=== PATIENT | female | born 1935 | race Caucasian/White ===

== ENCOUNTER 2017-07-24 12:34 | Inpatient (IN) | payer MEDICARE ==
[~2017-07-24] VITALS: Ht 167.6 cm; Wt 64.3 kg
[~2017-07-24 12:34] MED LIST: HEPARIN SODIUM 1000UNIT/ML 10ML VIAL IV ONE
[2017-07-24 13:15] LABS: BASOPHILS % (AUTO) 0.5 % (0.0-5.0); EOSINOPHILS % (AUTO) 1.5 % (0.0-8.0); HEMATOCRIT 26.4 % (36-48); LYMPHOCYTES % (AUTO) 11.8 % (21.0-51.0); MEAN CORPUSCULAR HEMOGLOBIN 30.7 pg (27.0-33.0); MEAN CORPUSCULAR HGB CONC 33.3 g/dL (32.0-36.0); MEAN CORPUSCULAR VOLUME 92.3 fL (79-99); MONOCYTES % (AUTO) 6.6 % (3.0-13.0); NEUTROPHILS % (AUTO) 79.6 % (40.0-77.0); PLATELET COUNT (AUTO) 354 K/uL (130-400); RED BLOOD CELL COUNT(AUTO) 2.87 MIL/uL (4.00-5.50); RED CELL DISTRIBUTION WIDTH 15.8 % (11.0-15.5); WHITE BLOOD COUNT (AUTO) 13.3 K/uL (4.8-10.8)
[2017-07-24 13:23] LABS: CREATININE 1.1 mg/dL (0.5-1.5); POTASSIUM 3.3 mmol/L (3.5-5.1)
[2017-07-24 13:28] LABS: ALBUMIN 3.1 g/dL (3.5-5.0); BILIRUBIN,TOTAL 0.4 mg/dL (0.2-1.0); TOTAL PROTEIN, SERUM 6.6 g/dL (6.0-8.3)
[2017-07-24] MEDS ORDERED: LEVOFLOXACIN 750 MG/D5W 150 ML 150 ML ONE (15:00)
[2017-07-24] MEDS ORDERED: METHYLPREDNISOLONE SOD SUCC 40MG/ML 1ML ONE (17:28)
[2017-07-24] MEDS ORDERED: BENZONATATE 100 MG CAPSULE PO ONE (21:34)
[2017-07-24] MEDS ORDERED: IPRATROPIUM/ALBUTEROL SULFATE 3 ML SOLUTION IH ONE (21:48)
[2017-07-24] MEDS ORDERED: GUAIFENESIN-CODEINE 5 ML SYRUP ONE (21:52)
[2017-07-24 23:50] VITALS: BP 143/46
[2017-07-25] MEDS ORDERED: ONDANSETRON HCL 4 MG/2 ML VIAL IV PRN
[2017-07-25] MEDS ORDERED: HYDRALAZINE HCL 20 MG/ML VIAL IV PRN
[2017-07-25] MEDS: LEVOFLOXACIN 500 MG/D5W 100 ML 100 ML IV SCH
[2017-07-25] MEDS ORDERED: POTASSIUM CHLORIDE 20 MEQ ERTAB PO SCH
[2017-07-25] MEDS: METHYLPREDNISOLONE SOD SUCC 125MG/2ML VIAL IV SCH ×4 (00:11→23:30)
[2017-07-25] MEDS: GUAIFENESIN-DM 200/20 MG 10 ML PO PRN ×3 (02:08→23:30)
[2017-07-25] MEDS: ACETAMINOPHEN 325 MG TAB PO PRN ×3 (02:09→19:55)
[2017-07-25] MEDS: IPRATROPIUM/ALBUTEROL SULFATE 3 ML SOLUTION IH SCH ×6 (02:27→22:26)
[2017-07-25 03:00] VITALS: BP 126/74
[2017-07-25 05:33] LABS: BASOPHILS % (AUTO) 0.1 % (0.0-5.0); HEMATOCRIT 23.6 % (36-48); LYMPHOCYTES % (AUTO) 3.4 % (21.0-51.0); MEAN CORPUSCULAR HEMOGLOBIN 31.7 pg (27.0-33.0); MEAN CORPUSCULAR HGB CONC 34.7 g/dL (32.0-36.0); MEAN CORPUSCULAR VOLUME 91.2 fL (79-99); MONOCYTES % (AUTO) 1.4 % (3.0-13.0); NEUTROPHILS % (AUTO) 95.1 % (40.0-77.0); PLATELET COUNT (AUTO) 306 K/uL (130-400); RED BLOOD CELL COUNT(AUTO) 2.59 MIL/uL (4.00-5.50); RED CELL DISTRIBUTION WIDTH 15.8 % (11.0-15.5); WHITE BLOOD COUNT (AUTO) 9.9 K/uL (4.8-10.8)
[2017-07-25 05:35] LABS: CREATININE 1.3 mg/dL (0.5-1.5); POTASSIUM 3.4 mmol/L (3.5-5.1)
[2017-07-25 07:24] VITALS: BP 120/42
[2017-07-25] MEDS: FAMOTIDINE 20MG TAB 20 MG TAB PO SCH (08:23)
[2017-07-25] MEDS: ENOXAPARIN SODIUM 40 MG/0.4 ML SYRINGE SQ SCH (08:24)
[2017-07-25] MEDS ORDERED: LEVOFLOXACIN 750 MG/D5W 150 ML 150 ML IV SCH (09:00)
[2017-07-25 11:51] VITALS: BP 119/56
[2017-07-25] MEDS: SODIUM CHLORIDE 0.9% 1000ML 1,000 ML IV SCH (13:16)
[2017-07-25] MEDS ORDERED: ASPI-555 PO (13:31)
[2017-07-25] MEDS ORDERED: MAGN400T6 PO (13:31)
[2017-07-25] MEDS ORDERED: FOLI1TAB15 PO (13:31)
[2017-07-25] MEDS ORDERED: IRON1CAP35 PO (13:31)
[2017-07-25] MEDS ORDERED: METO25TA6 PO (13:31)
[2017-07-25] MEDS ORDERED: LOVA20TA3 PO (13:31)
[2017-07-25] MEDS ORDERED: LOSA1TAB42 PO (13:31)
[2017-07-25] MEDS ORDERED: CALC-724 PO (13:38)
[2017-07-25] MEDS ORDERED: FISH1CAP63 PO (13:38)
[2017-07-25] MEDS ORDERED: CYAN1000I IM (13:38)
[2017-07-25 15:56] VITALS: BP 95/58
[2017-07-25 19:00] VITALS: BP 135/65
[2017-07-25] MEDS: BENZONATATE 100 MG CAPSULE PO PRN (19:51)
[2017-07-25] MEDS ORDERED: POTASSIUM CHLORIDE 20MEQ/100ML 100 ML IV PRN (22:45)
[2017-07-25] MEDS ORDERED: POTASSIUM CHLORIDE 10% ELIXIR 20 MEQ/15 ML UDCUP PO PRN (22:45)
[2017-07-25] MEDS ORDERED: LIDOCAINE HCL-MPF 1% 2ML VIAL IVP PRN (22:45)
[2017-07-25 23:00] VITALS: BP 135/64
[2017-07-25] MEDS: POTASSIUM CHLORIDE 20 MEQ ERTAB PO PRN (23:35)
[2017-07-26] MEDS: IPRATROPIUM/ALBUTEROL SULFATE 3 ML SOLUTION IH SCH ×6 (02:35→21:59)
[2017-07-26 03:00] VITALS: BP 134/63
[2017-07-26] MEDS: POTASSIUM CHLORIDE 20 MEQ ERTAB PO PRN (04:37)
[2017-07-26] MEDS: BENZONATATE 100 MG CAPSULE PO PRN (04:37)
[2017-07-26] MEDS: GUAIFENESIN-DM 200/20 MG 10 ML PO PRN ×3 (04:37→14:50)
[2017-07-26] MEDS: SODIUM CHLORIDE 0.9% 1000ML 1,000 ML IV SCH (05:20)
[2017-07-26] MEDS: ACETYLCYSTEINE 10% 100MG/ML 4ML VIAL IH SCH ×5 (06:28→21:59)
[2017-07-26] MEDS ORDERED: PHARMACY COMMUNICATION MISC SCH (06:30)
[2017-07-26 08:00] VITALS: BP 105/53
[2017-07-26] MEDS: FAMOTIDINE 20MG TAB 20 MG TAB PO SCH (08:22)
[2017-07-26] MEDS: METHYLPREDNISOLONE SOD SUCC 125MG/2ML VIAL IV SCH ×2 (08:22→18:52)
[2017-07-26] MEDS: ENOXAPARIN SODIUM 40 MG/0.4 ML SYRINGE SQ SCH (08:23)
[2017-07-26 12:00] VITALS: BP 143/81
[2017-07-26 12:16] LABS: HEMATOCRIT 23.5 % (36-48); MEAN CORPUSCULAR HEMOGLOBIN 29.9 pg (27.0-33.0); MEAN CORPUSCULAR HGB CONC 32.7 g/dL (32.0-36.0); MEAN CORPUSCULAR VOLUME 91.5 fL (79-99); PLATELET COUNT (AUTO) 329 K/uL (130-400); RED BLOOD CELL COUNT(AUTO) 2.56 MIL/uL (4.00-5.50); RED CELL DISTRIBUTION WIDTH 16.1 % (11.0-15.5); WHITE BLOOD COUNT (AUTO) 16.7 K/uL (4.8-10.8)
[2017-07-26 12:17] LABS: CREATININE 1.2 mg/dL (0.5-1.5); POTASSIUM 3.9 mmol/L (3.5-5.1)
[2017-07-26 16:00] VITALS: BP 128/68
[2017-07-26 20:00] VITALS: BP 140/70
[2017-07-26] MEDS: METOPROLOL TARTRATE 25 MG TAB PO SCH (21:08)
[2017-07-26] MEDS: GUAIFENESIN-CODEINE 5 ML SYRUP PO SCH (21:08)
[2017-07-26] MEDS: FISH OIL 1000 MG/CAP PO SCH (21:08)
[2017-07-26] MEDS: ATORVASTATIN CALCIUM 10 MG TABLET PO SCH (21:08)
[2017-07-27] VITALS: BP 114/54
[2017-07-27] MEDS: METHYLPREDNISOLONE SOD SUCC 125MG/2ML VIAL IV SCH ×3 (01:01→16:43)
[2017-07-27] MEDS: GUAIFENESIN-DM 200/20 MG 10 ML PO PRN ×2 (01:01→14:47)
[2017-07-27] MEDS: ACETAMINOPHEN 325 MG TAB PO PRN ×2 (01:01→14:50)
[2017-07-27] MEDS: LEVOFLOXACIN 500 MG/D5W 100 ML 100 ML IV SCH (01:02)
[2017-07-27] MEDS: LORAZEPAM 2 MG/ML 1 ML VIAL IVP PRN ×2 (01:11→22:09)
[2017-07-27] MEDS: IPRATROPIUM/ALBUTEROL SULFATE 3 ML SOLUTION IH SCH ×6 (02:26→21:56)
[2017-07-27] MEDS: ACETYLCYSTEINE 10% 100MG/ML 4ML VIAL IH SCH ×2 (02:26→06:00)
[2017-07-27] MEDS: BENZONATATE 100 MG CAPSULE PO PRN ×3 (02:55→22:08)
[2017-07-27 04:00] VITALS: BP 126/68
[2017-07-27 07:49] LABS: HEMATOCRIT 24.1 % (36-48); MEAN CORPUSCULAR HEMOGLOBIN 30.5 pg (27.0-33.0); MEAN CORPUSCULAR HGB CONC 33.8 g/dL (32.0-36.0); MEAN CORPUSCULAR VOLUME 90.4 fL (79-99); PLATELET COUNT (AUTO) 330 K/uL (130-400); RED BLOOD CELL COUNT(AUTO) 2.67 MIL/uL (4.00-5.50); RED CELL DISTRIBUTION WIDTH 16.3 % (11.0-15.5); WHITE BLOOD COUNT (AUTO) 22.7 K/uL (4.8-10.8)
[2017-07-27 08:00] VITALS: BP 112/70
[2017-07-27 08:08] LABS: CREATININE 1.1 mg/dL (0.5-1.5); POTASSIUM 4.4 mmol/L (3.5-5.1)
[2017-07-27] MEDS ORDERED: HYDROCHLOROTHIAZIDE 25 MG TABLET PO SCH (09:00)
[2017-07-27] MEDS: MAGNESIUM OXIDE 400 MG TABLET PO SCH (10:12)
[2017-07-27] MEDS: CALCIUM 600 + VITAMIN D 400 TABLET PO SCH (10:12)
[2017-07-27] MEDS: ASPIRIN 81 MG EC TAB PO SCH (10:12)
[2017-07-27] MEDS: FE FUMARATE/FA/MV, MIN COMB#15 1 TAB PO SCH (10:12)
[2017-07-27] MEDS: METOPROLOL TARTRATE 25 MG TAB PO SCH ×2 (10:12→22:08)
[2017-07-27] MEDS: ENOXAPARIN SODIUM 40 MG/0.4 ML SYRINGE SQ SCH (10:12)
[2017-07-27] MEDS: LOSARTAN 100 MG TABLET PO SCH (10:12)
[2017-07-27] MEDS: FOLIC ACID 1 MG TABLET PO SCH (10:12)
[2017-07-27] MEDS: FAMOTIDINE 20MG TAB 20 MG TAB PO SCH (10:14)
[2017-07-27] MEDS: CYANOCOBALAMIN (VITAMIN B-12) 1000 MCG/ML 1ML VIAL IM SCH (10:30)
[2017-07-27 10:34] LABS: THYROID STIMULATING HORMONE 1.43 uIU/mL (0.36-3.74)
[2017-07-27 11:30] VITALS: BP 119/56
[2017-07-27 16:00] VITALS: BP 132/76
[2017-07-27 20:00] VITALS: BP 148/82
[2017-07-27] MEDS: ATORVASTATIN CALCIUM 10 MG TABLET PO SCH (22:08)
[2017-07-27] MEDS: GUAIFENESIN-CODEINE 5 ML SYRUP PO SCH (22:08)
[2017-07-27] MEDS: FISH OIL 1000 MG/CAP PO SCH (22:08)
[2017-07-28] VITALS (7 sets, daily range): BP systolic 116–147; BP diastolic 69–104
[2017-07-28] MEDS: METHYLPREDNISOLONE SOD SUCC 125MG/2ML VIAL IV SCH ×4 (00:34→23:09)
[2017-07-28] MEDS: IPRATROPIUM/ALBUTEROL SULFATE 3 ML SOLUTION IH SCH ×6 (01:14→21:51)
[2017-07-28] MEDS: GUAIFENESIN-DM 200/20 MG 10 ML PO PRN ×3 (03:36→23:00)
[2017-07-28] MEDS: BENZONATATE 100 MG CAPSULE PO PRN ×2 (03:36→17:45)
[2017-07-28 07:41] LABS: HEMATOCRIT 25.8 % (36-48); MEAN CORPUSCULAR HEMOGLOBIN 29.4 pg (27.0-33.0); PLATELET COUNT (AUTO) 341 K/uL (130-400); RED CELL DISTRIBUTION WIDTH 16.6 % (11.0-15.5); WHITE BLOOD COUNT (AUTO) 18.3 K/uL (4.8-10.8)
[2017-07-28 07:47] LABS: CREATININE 0.8 mg/dL (0.5-1.5); POTASSIUM 4.4 mmol/L (3.5-5.1)
[2017-07-28] MEDS: METOPROLOL TARTRATE 25 MG TAB PO SCH ×2 (09:18→20:45)
[2017-07-28] MEDS: FAMOTIDINE 20MG TAB 20 MG TAB PO SCH (09:18)
[2017-07-28] MEDS: MAGNESIUM OXIDE 400 MG TABLET PO SCH (09:18)
[2017-07-28] MEDS: LOSARTAN 100 MG TABLET PO SCH (09:18)
[2017-07-28] MEDS: ASPIRIN 81 MG EC TAB PO SCH (09:18)
[2017-07-28] MEDS: FE FUMARATE/FA/MV, MIN COMB#15 1 TAB PO SCH (09:18)
[2017-07-28] MEDS: CYANOCOBALAMIN (VITAMIN B-12) 1000 MCG/ML 1ML VIAL IM SCH (09:18)
[2017-07-28] MEDS: FOLIC ACID 1 MG TABLET PO SCH (09:18)
[2017-07-28] MEDS: CALCIUM 600 + VITAMIN D 400 TABLET PO SCH (09:18)
[2017-07-28] MEDS: ENOXAPARIN SODIUM 40 MG/0.4 ML SYRINGE SQ SCH (09:19)
[2017-07-28] MEDS: SODIUM CHLORIDE 1,000 MG TAB PO SCH ×3 (10:48→23:02)
[2017-07-28] MEDS: SODIUM CHLORIDE 0.9% 1000ML 1,000 ML IV SCH (10:49)
[2017-07-28] MEDS: ACETAMINOPHEN 325 MG TAB PO PRN (10:49)
[2017-07-28] MEDS: ATORVASTATIN CALCIUM 10 MG TABLET PO SCH (20:45)
[2017-07-28] MEDS: FISH OIL 1000 MG/CAP PO SCH (20:45)
[2017-07-28] MEDS: GUAIFENESIN-CODEINE 5 ML SYRUP PO SCH (20:46)
[2017-07-28] MEDS: LORAZEPAM 2 MG/ML 1 ML VIAL IVP PRN (23:01)
[2017-07-28] MEDS: LEVOFLOXACIN 500 MG/D5W 100 ML 100 ML IV SCH (23:02)
[2017-07-29] MEDS: IPRATROPIUM/ALBUTEROL SULFATE 3 ML SOLUTION IH SCH ×6 (01:45→21:59)
[2017-07-29 03:00] VITALS: BP 136/70
[2017-07-29] MEDS: SODIUM CHLORIDE 1,000 MG TAB PO SCH ×3 (05:36→18:35)
[2017-07-29] MEDS: SODIUM CHLORIDE 0.9% 1000ML 1,000 ML IV SCH (06:39)
[2017-07-29 08:00] VITALS: BP 133/78
[2017-07-29] MEDS: METHYLPREDNISOLONE SOD SUCC 125MG/2ML VIAL IV SCH ×2 (08:46→16:35)
[2017-07-29] MEDS: MAGNESIUM OXIDE 400 MG TABLET PO SCH (08:47)
[2017-07-29] MEDS: FE FUMARATE/FA/MV, MIN COMB#15 1 TAB PO SCH (08:47)
[2017-07-29] MEDS: CYANOCOBALAMIN (VITAMIN B-12) 1000 MCG/ML 1ML VIAL IM SCH (08:47)
[2017-07-29] MEDS: CALCIUM 600 + VITAMIN D 400 TABLET PO SCH (08:47)
[2017-07-29] MEDS: ASPIRIN 81 MG EC TAB PO SCH (08:47)
[2017-07-29] MEDS: FAMOTIDINE 20MG TAB 20 MG TAB PO SCH (08:47)
[2017-07-29] MEDS: FOLIC ACID 1 MG TABLET PO SCH (08:47)
[2017-07-29] MEDS: LOSARTAN 100 MG TABLET PO SCH (08:47)
[2017-07-29] MEDS: METOPROLOL TARTRATE 25 MG TAB PO SCH ×2 (08:47→21:23)
[2017-07-29] MEDS: ENOXAPARIN SODIUM 40 MG/0.4 ML SYRINGE SQ SCH (08:48)
[2017-07-29] MEDS: LORAZEPAM 2 MG/ML 1 ML VIAL IVP PRN ×2 (10:46→21:24)
[2017-07-29 11:43] VITALS: BP 148/79
[2017-07-29] MEDS ORDERED: ZOSYN 3.375GM+NS 50ML 50 ML IV SCH (15:00)
[2017-07-29 15:56] VITALS: BP 136/85
[2017-07-29] MEDS: MEROPENEM 1 GM VIAL IVP SCH ×2 (16:35→22:40)
[2017-07-29] MEDS: BENZONATATE 100 MG CAPSULE PO PRN (18:42)
[2017-07-29 19:00] VITALS: BP 153/91
[2017-07-29] MEDS: ATORVASTATIN CALCIUM 10 MG TABLET PO SCH (21:23)
[2017-07-29] MEDS: FISH OIL 1000 MG/CAP PO SCH (21:23)
[2017-07-29] MEDS: GUAIFENESIN-CODEINE 5 ML SYRUP PO SCH (21:24)
[2017-07-29 23:00] VITALS: BP 135/64
[2017-07-30] MEDS: METHYLPREDNISOLONE SOD SUCC 125MG/2ML VIAL IV SCH ×2 (00:07→08:46)
[2017-07-30] MEDS: SODIUM CHLORIDE 1,000 MG TAB PO SCH ×4 (00:07→17:05)
[2017-07-30] MEDS: IPRATROPIUM/ALBUTEROL SULFATE 3 ML SOLUTION IH SCH ×6 (01:41→22:18)
[2017-07-30 03:00] VITALS: BP 136/73
[2017-07-30 05:40] LABS: HEMATOCRIT 25.1 % (36-48); MEAN CORPUSCULAR HEMOGLOBIN 28.8 pg (27.0-33.0); MEAN CORPUSCULAR HGB CONC 32.4 g/dL (32.0-36.0); MEAN CORPUSCULAR VOLUME 89.1 fL (79-99); NUCLEATED RED BLOOD CELLS 0.2 % (0.0-0.19); PLATELET COUNT (AUTO) 392 K/uL (130-400); RED BLOOD CELL COUNT(AUTO) 2.82 MIL/uL (4.00-5.50); RED CELL DISTRIBUTION WIDTH 16.6 % (11.0-15.5); WHITE BLOOD COUNT (AUTO) 22.3 K/uL (4.8-10.8)
[2017-07-30 05:59] LABS: ALBUMIN 2.8 g/dL (3.5-5.0); BILIRUBIN,TOTAL 0.6 mg/dL (0.2-1.0); CREATININE 0.9 mg/dL (0.5-1.5); POTASSIUM 4.4 mmol/L (3.5-5.1); TOTAL PROTEIN, SERUM 5.6 g/dL (6.0-8.3)
[2017-07-30] MEDS: MEROPENEM 1 GM VIAL IVP SCH ×3 (06:11→23:58)
[2017-07-30 06:21] LABS: LYMPHOCYTES % (MANUAL) 2 % (22-44); MAN.DIFF COMMENT-IMPRESSION MANUAL DIFFERENTIAL; METAMYELOCYTES % 1 % (0-0); MONOCYTES % (MANUAL) 4 % (2-9); PLATELET MORPHOLOGY COMMENT ADEQUATE; SEGMENTED NEUTROPHILS % 93 % (40-70)
[2017-07-30 06:23] LABS: B-TYPE NATRIURETIC PEPTIDE 1940 pg/mL (0-100)
[2017-07-30 06:53] LABS: ERYTHROCYTE SEDIMENTATION RATE 18 MM/HR (0-15)
[2017-07-30 07:30] VITALS: BP 135/77
[2017-07-30 08:10] LABS: ABG BASE EXCESS 1.2 mmol/L (-2.0-3.0); ABG HCO3 24.6 mmol/L (21.0-28.0); ABG OXYGEN SATURATION 95.5 % (95.0-99.0); ABG PCO2 35 mmHg (32-45)
[2017-07-30] MEDS: CYANOCOBALAMIN (VITAMIN B-12) 1000 MCG/ML 1ML VIAL IM SCH (08:46)
[2017-07-30] MEDS: FE FUMARATE/FA/MV, MIN COMB#15 1 TAB PO SCH (08:47)
[2017-07-30] MEDS: LOSARTAN 100 MG TABLET PO SCH (08:47)
[2017-07-30] MEDS: FOLIC ACID 1 MG TABLET PO SCH (08:47)
[2017-07-30] MEDS: MAGNESIUM OXIDE 400 MG TABLET PO SCH (08:47)
[2017-07-30] MEDS: ASPIRIN 81 MG EC TAB PO SCH (08:47)
[2017-07-30] MEDS: CALCIUM 600 + VITAMIN D 400 TABLET PO SCH (08:47)
[2017-07-30] MEDS: METOPROLOL TARTRATE 25 MG TAB PO SCH ×2 (08:47→18:44)
[2017-07-30] MEDS: ENOXAPARIN SODIUM 40 MG/0.4 ML SYRINGE SQ SCH (08:48)
[2017-07-30] MEDS: FAMOTIDINE 20MG TAB 20 MG TAB PO SCH (08:48)
[2017-07-30 12:00] VITALS: BP 132/74
[2017-07-30] MEDS: FUROSEMIDE 10 MG/ML 2ML VIAL IV SCH (13:47)
[2017-07-30] MEDS: GUAIFENESIN-DM 200/20 MG 10 ML PO PRN (13:48)
[2017-07-30 16:00] VITALS: BP 141/77
[2017-07-30] MEDS: BENZONATATE 100 MG CAPSULE PO PRN (16:04)
[2017-07-30] MEDS ORDERED: DILTIAZEM HCL 5 MG/ML 5 ML VIAL IVP SCH (18:13)
[2017-07-30 20:00] VITALS: BP 128/72
[2017-07-30] MEDS: ATORVASTATIN CALCIUM 10 MG TABLET PO SCH (21:04)
[2017-07-30] MEDS: FISH OIL 1000 MG/CAP PO SCH (21:04)
[2017-07-30] MEDS: GUAIFENESIN-CODEINE 5 ML SYRUP PO SCH (21:05)
[2017-07-30] MEDS: METHYLPREDNISOLONE SOD SUCC 40MG/ML 1ML IVP SCH (21:05)
[2017-07-31] VITALS (7 sets, daily range): BP systolic 121–147; BP diastolic 57–80
[2017-07-31] MEDS: FUROSEMIDE 10 MG/ML 2ML VIAL IV SCH (00:11)
[2017-07-31] MEDS: SODIUM CHLORIDE 1,000 MG TAB PO SCH ×4 (00:11→17:42)
[2017-07-31] MEDS: LEVOFLOXACIN 500 MG/D5W 100 ML 100 ML IV SCH (00:11)
[2017-07-31] MEDS: IPRATROPIUM/ALBUTEROL SULFATE 3 ML SOLUTION IH SCH ×6 (01:54→22:13)
[2017-07-31] MEDS: ACETAMINOPHEN 325 MG TAB PO PRN (04:12)
[2017-07-31] MEDS: MEROPENEM 1 GM VIAL IVP SCH ×2 (06:00→15:06)
[2017-07-31 06:32] LABS: HEMATOCRIT 24.2 % (36-48); MEAN CORPUSCULAR HGB CONC 33.5 g/dL (32.0-36.0); MEAN CORPUSCULAR VOLUME 89.7 fL (79-99); NUCLEATED RED BLOOD CELLS 0.3 % (0.0-0.19); PLATELET COUNT (AUTO) 376 K/uL (130-400); RED BLOOD CELL COUNT(AUTO) 2.69 MIL/uL (4.00-5.50); WHITE BLOOD COUNT (AUTO) 23.8 K/uL (4.8-10.8)
[2017-07-31 06:40] LABS: CREATININE 0.9 mg/dL (0.5-1.5); POTASSIUM 4.5 mmol/L (3.5-5.1)
[2017-07-31 07:10] LABS: LYMPHOCYTES % (MANUAL) 4 % (22-44); MAN.DIFF COMMENT-IMPRESSION MANUAL DIFFERENTIAL; MONOCYTES % (MANUAL) 8 % (2-9); PLATELET MORPHOLOGY COMMENT ADEQUATE; SEGMENTED NEUTROPHILS % 88 % (40-70)
[2017-07-31 07:38] LABS: B-TYPE NATRIURETIC PEPTIDE 2070 pg/mL (0-100)
[2017-07-31] MEDS: METHYLPREDNISOLONE SOD SUCC 40MG/ML 1ML IVP SCH ×2 (08:46→20:40)
[2017-07-31] MEDS: MAGNESIUM OXIDE 400 MG TABLET PO SCH (08:46)
[2017-07-31] MEDS: FAMOTIDINE 20MG TAB 20 MG TAB PO SCH (08:46)
[2017-07-31] MEDS: FE FUMARATE/FA/MV, MIN COMB#15 1 TAB PO SCH (08:46)
[2017-07-31] MEDS: ASPIRIN 81 MG EC TAB PO SCH (08:46)
[2017-07-31] MEDS: CYANOCOBALAMIN (VITAMIN B-12) 1000 MCG/ML 1ML VIAL IM SCH (08:46)
[2017-07-31] MEDS: METOPROLOL TARTRATE 25 MG TAB PO SCH (08:46)
[2017-07-31] MEDS: LOSARTAN 100 MG TABLET PO SCH (08:47)
[2017-07-31] MEDS: CALCIUM 600 + VITAMIN D 400 TABLET PO SCH (08:47)
[2017-07-31] MEDS: FOLIC ACID 1 MG TABLET PO SCH (08:47)
[2017-07-31] MEDS: ENOXAPARIN SODIUM 40 MG/0.4 ML SYRINGE SQ SCH (08:48)
[2017-07-31 13:00] LABS: CREATINE KINASE MB 6.1 ng/mL (0.5-3.6)
[2017-07-31 13:02] LABS: TROPONIN I 1.17 ng/mL (0.00-0.06)
[2017-07-31] MEDS: FUROSEMIDE 20 MG TABLET PO SCH (17:42)
[2017-07-31] MEDS ORDERED: DILTIAZEM HCL 5 MG/ML 5 ML VIAL IVP SCH (19:45)
[2017-07-31] MEDS: POTASSIUM CHLORIDE 20 MEQ ERTAB PO SCH (20:40)
[2017-07-31] MEDS: FISH OIL 1000 MG/CAP PO SCH (20:40)
[2017-07-31] MEDS: GUAIFENESIN-CODEINE 5 ML SYRUP PO SCH (20:40)
[2017-07-31] MEDS: ATORVASTATIN CALCIUM 10 MG TABLET PO SCH (20:41)
[2017-07-31] MEDS: LORAZEPAM 2 MG/ML 1 ML VIAL IVP PRN (21:18)
[2017-08-01] VITALS (7 sets, daily range): BP systolic 107–151; BP diastolic 62–96
[2017-08-01] MEDS: SODIUM CHLORIDE 1,000 MG TAB PO SCH ×5 (00:51→23:29)
[2017-08-01] MEDS: GUAIFENESIN-DM 200/20 MG 10 ML PO PRN ×3 (00:51→15:31)
[2017-08-01] MEDS: METOPROLOL TARTRATE 25 MG TAB PO SCH ×3 (00:51→23:29)
[2017-08-01] MEDS: MEROPENEM 1 GM VIAL IVP SCH ×4 (00:52→23:27)
[2017-08-01] MEDS: IPRATROPIUM/ALBUTEROL SULFATE 3 ML SOLUTION IH SCH ×6 (02:20→22:50)
[2017-08-01] MEDS: BENZONATATE 100 MG CAPSULE PO PRN ×2 (04:13→23:28)
[2017-08-01 05:04] LABS: BASOPHILS % (AUTO) 0.2 % (0.0-5.0); HEMATOCRIT 24.9 % (36-48); LYMPHOCYTES % (AUTO) 2.6 % (21.0-51.0); MEAN CORPUSCULAR HEMOGLOBIN 29.2 pg (27.0-33.0); MEAN CORPUSCULAR HGB CONC 32.7 g/dL (32.0-36.0); MEAN CORPUSCULAR VOLUME 89.1 fL (79-99); MONOCYTES % (AUTO) 6.4 % (3.0-13.0); NEUTROPHILS % (AUTO) 90.8 % (40.0-77.0); NUCLEATED RED BLOOD CELLS 0.4 % (0.0-0.19); PLATELET COUNT (AUTO) 452 K/uL (130-400); RED CELL DISTRIBUTION WIDTH 16.9 % (11.0-15.5); WHITE BLOOD COUNT (AUTO) 27.1 K/uL (4.8-10.8)
[2017-08-01 05:21] LABS: POTASSIUM 4.7 mmol/L (3.5-5.1)
[2017-08-01 08:30] LABS: CREATINE KINASE MB 5.1 ng/mL (0.5-3.6)
[2017-08-01] MEDS: MAGNESIUM OXIDE 400 MG TABLET PO SCH (09:46)
[2017-08-01] MEDS: ASPIRIN 81 MG EC TAB PO SCH (09:47)
[2017-08-01] MEDS: POTASSIUM CHLORIDE 20 MEQ ERTAB PO SCH ×2 (09:47→23:28)
[2017-08-01] MEDS: CALCIUM 600 + VITAMIN D 400 TABLET PO SCH (09:47)
[2017-08-01] MEDS: FOLIC ACID 1 MG TABLET PO SCH (09:47)
[2017-08-01] MEDS: METHYLPREDNISOLONE SOD SUCC 40MG/ML 1ML IVP SCH ×2 (09:47→23:27)
[2017-08-01] MEDS: LOSARTAN 100 MG TABLET PO SCH (09:47)
[2017-08-01] MEDS: FAMOTIDINE 20MG TAB 20 MG TAB PO SCH (09:48)
[2017-08-01] MEDS: FUROSEMIDE 20 MG TABLET PO SCH ×2 (09:48→16:50)
[2017-08-01] MEDS: FE FUMARATE/FA/MV, MIN COMB#15 1 TAB PO SCH (09:48)
[2017-08-01] MEDS: ENOXAPARIN SODIUM 40 MG/0.4 ML SYRINGE SQ SCH (09:49)
[2017-08-01] MEDS: CYANOCOBALAMIN (VITAMIN B-12) 1000 MCG/ML 1ML VIAL IM SCH (09:49)
[2017-08-01 13:26] LABS: TROPONIN I 0.83 ng/mL (0.00-0.06)
[2017-08-01] MEDS ORDERED: LACTULOSE 20 GM/30 ML UDCUP PO PRN (13:30)
[2017-08-01 13:37] LABS: CREATINE KINASE MB 4.1 ng/mL (0.5-3.6)
[2017-08-01] MEDS: DOCUSATE SODIUM 100 MG CAP PO SCH (15:31)
[2017-08-01] MEDS: LEVOFLOXACIN 500 MG/D5W 100 ML 100 ML IV SCH (23:27)
[2017-08-01] MEDS: GUAIFENESIN-CODEINE 5 ML SYRUP PO SCH (23:27)
[2017-08-01] MEDS: ATORVASTATIN CALCIUM 10 MG TABLET PO SCH (23:29)
[2017-08-01] MEDS: FISH OIL 1000 MG/CAP PO SCH (23:29)
[2017-08-01] MEDS: LORAZEPAM 2 MG/ML 1 ML VIAL IVP PRN (23:31)
[2017-08-02] MEDS: IPRATROPIUM/ALBUTEROL SULFATE 3 ML SOLUTION IH SCH ×6 (02:00→22:30)
[2017-08-02 04:27] VITALS: BP 150/71
[2017-08-02 05:45] LABS: BASOPHILS % (AUTO) 0.2 % (0.0-5.0); HEMATOCRIT 23.2 % (36-48); LYMPHOCYTES % (AUTO) 2.5 % (21.0-51.0); MEAN CORPUSCULAR HEMOGLOBIN 30.5 pg (27.0-33.0); MEAN CORPUSCULAR HGB CONC 34.1 g/dL (32.0-36.0); MEAN CORPUSCULAR VOLUME 89.6 fL (79-99); MONOCYTES % (AUTO) 6.4 % (3.0-13.0); NEUTROPHILS % (AUTO) 90.9 % (40.0-77.0); NUCLEATED RED BLOOD CELLS 0.3 % (0.0-0.19); PLATELET COUNT (AUTO) 386 K/uL (130-400); RED BLOOD CELL COUNT(AUTO) 2.59 MIL/uL (4.00-5.50); RED CELL DISTRIBUTION WIDTH 16.2 % (11.0-15.5); WHITE BLOOD COUNT (AUTO) 19.6 K/uL (4.8-10.8)
[2017-08-02 06:17] LABS: CREATININE 0.8 mg/dL (0.5-1.5); POTASSIUM 5.3 mmol/L (3.5-5.1)
[2017-08-02] MEDS: SODIUM CHLORIDE 1,000 MG TAB PO SCH ×3 (07:05→18:41)
[2017-08-02] MEDS: MEROPENEM 1 GM VIAL IVP SCH ×3 (07:05→22:07)
[2017-08-02 08:00] VITALS: BP 131/59
[2017-08-02] MEDS: METHYLPREDNISOLONE SOD SUCC 40MG/ML 1ML IVP SCH (10:07)
[2017-08-02] MEDS: CYANOCOBALAMIN (VITAMIN B-12) 1000 MCG/ML 1ML VIAL IM SCH (10:07)
[2017-08-02] MEDS: FAMOTIDINE 20MG TAB 20 MG TAB PO SCH (10:07)
[2017-08-02] MEDS: FOLIC ACID 1 MG TABLET PO SCH (10:07)
[2017-08-02] MEDS: MAGNESIUM OXIDE 400 MG TABLET PO SCH (10:08)
[2017-08-02] MEDS: FUROSEMIDE 20 MG TABLET PO SCH ×2 (10:08→18:42)
[2017-08-02] MEDS: DOCUSATE SODIUM 100 MG CAP PO SCH (10:09)
[2017-08-02] MEDS: METOPROLOL TARTRATE 25 MG TAB PO SCH ×3 (10:09→22:33)
[2017-08-02] MEDS: POTASSIUM CHLORIDE 20 MEQ ERTAB PO SCH ×2 (10:09→21:00)
[2017-08-02] MEDS: CALCIUM 600 + VITAMIN D 400 TABLET PO SCH (10:09)
[2017-08-02] MEDS: FE FUMARATE/FA/MV, MIN COMB#15 1 TAB PO SCH (10:09)
[2017-08-02] MEDS: LOSARTAN 100 MG TABLET PO SCH (10:09)
[2017-08-02] MEDS: ASPIRIN 81 MG EC TAB PO SCH (10:09)
[2017-08-02] MEDS: ENOXAPARIN SODIUM 40 MG/0.4 ML SYRINGE SQ SCH (10:10)
[2017-08-02 11:00] VITALS: BP 137/64
[2017-08-02] MEDS: GUAIFENESIN-DM 200/20 MG 10 ML PO PRN (13:08)
[2017-08-02 16:00] VITALS: BP 123/56
[2017-08-02 20:00] VITALS: BP 119/70
[2017-08-02] MEDS: LORAZEPAM 2 MG/ML 1 ML VIAL IVP PRN (22:04)
[2017-08-02] MEDS: BENZONATATE 100 MG CAPSULE PO PRN (22:06)
[2017-08-02] MEDS: GUAIFENESIN-CODEINE 5 ML SYRUP PO SCH (22:06)
[2017-08-02] MEDS: FISH OIL 1000 MG/CAP PO SCH (22:06)
[2017-08-02] MEDS: ATORVASTATIN CALCIUM 10 MG TABLET PO SCH (22:06)
[2017-08-03] VITALS (7 sets, daily range): BP systolic 90–141; BP diastolic 47–72
[2017-08-03] MEDS: SODIUM CHLORIDE 1,000 MG TAB PO SCH ×4 (01:00→23:49)
[2017-08-03] MEDS: GUAIFENESIN-DM 200/20 MG 10 ML PO PRN (01:00)
[2017-08-03] MEDS: IPRATROPIUM/ALBUTEROL SULFATE 3 ML SOLUTION IH SCH ×6 (02:05→21:31)
[2017-08-03 05:15] LABS: HEMATOCRIT 27.4 % (36-48); MEAN CORPUSCULAR HEMOGLOBIN 28.9 pg (27.0-33.0); MEAN CORPUSCULAR HGB CONC 31.9 g/dL (32.0-36.0); MEAN CORPUSCULAR VOLUME 90.4 fL (79-99); NUCLEATED RED BLOOD CELLS 0.6 % (0.0-0.19); PLATELET COUNT (AUTO) 516 K/uL (130-400); RED BLOOD CELL COUNT(AUTO) 3.03 MIL/uL (4.00-5.50); RED CELL DISTRIBUTION WIDTH 16.8 % (11.0-15.5); WHITE BLOOD COUNT (AUTO) 24.8 K/uL (4.8-10.8)
[2017-08-03 05:28] LABS: BAND NEUTROPHILS % (MANUAL) 1 % (0-2); LYMPHOCYTES % (MANUAL) 8 % (22-44); MAN.DIFF COMMENT-IMPRESSION MANUAL DIFFERENTIAL; MONOCYTES % (MANUAL) 12 % (2-9); SEGMENTED NEUTROPHILS % 79 % (40-70)
[2017-08-03 05:29] LABS: PLATELET MORPHOLOGY COMMENT INCREASED; POTASSIUM 5.1 mmol/L (3.5-5.1)
[2017-08-03] MEDS: MEROPENEM 1 GM VIAL IVP SCH ×3 (07:00→23:14)
[2017-08-03] MEDS: POTASSIUM CHLORIDE 20 MEQ ERTAB PO SCH (08:35)
[2017-08-03] MEDS: FOLIC ACID 1 MG TABLET PO SCH (09:00)
[2017-08-03] MEDS: MAGNESIUM OXIDE 400 MG TABLET PO SCH (09:00)
[2017-08-03] MEDS: PREDNISONE 10 MG TABLET PO SCH (09:00)
[2017-08-03] MEDS: FE FUMARATE/FA/MV, MIN COMB#15 1 TAB PO SCH (09:00)
[2017-08-03] MEDS: ASPIRIN 81 MG EC TAB PO SCH (09:00)
[2017-08-03] MEDS: CALCIUM 600 + VITAMIN D 400 TABLET PO SCH (09:00)
[2017-08-03] MEDS: FAMOTIDINE 20MG TAB 20 MG TAB PO SCH (09:00)
[2017-08-03] MEDS ORDERED: DILTIAZEM 125MG+100 ML NS 125 ML IV SCH (09:45)
[2017-08-03] MEDS ORDERED: DIGOXIN 250 MCG/ML 2ML AMP IV SCH (09:45)
[2017-08-03] MEDS: DOCUSATE SODIUM 100 MG CAP PO SCH (10:00)
[2017-08-03] MEDS: METOPROLOL TARTRATE 25 MG TAB PO SCH ×3 (10:04→21:52)
[2017-08-03] MEDS: ENOXAPARIN SODIUM 40 MG/0.4 ML SYRINGE SQ SCH (10:04)
[2017-08-03] MEDS: LOSARTAN 100 MG TABLET PO SCH (10:10)
[2017-08-03] MEDS: CYANOCOBALAMIN (VITAMIN B-12) 1000 MCG/ML 1ML VIAL IM SCH (10:11)
[2017-08-03] MEDS: FUROSEMIDE 20 MG TABLET PO SCH ×2 (10:11→16:37)
[2017-08-03 13:12] LABS: INR 1.07 (0.85-1.15); PARTIAL THROMBOPLASTIN TIME 26.8 SEC (26.3-35.5); PROTHROMBIN TIME 11.2 SEC (9.6-11.6)
[2017-08-03] MEDS ORDERED: DIGOXIN 250 MCG/ML 2ML AMP ONE (15:09)
[2017-08-03] MEDS: GUAIFENESIN-CODEINE 5 ML SYRUP PO SCH (21:36)
[2017-08-03] MEDS: FISH OIL 1000 MG/CAP PO SCH (21:37)
[2017-08-03] MEDS: ATORVASTATIN CALCIUM 10 MG TABLET PO SCH (21:37)
[2017-08-03] MEDS ORDERED: LORAZEPAM 2 MG/ML 1 ML VIAL IVP PRN (23:30)
[2017-08-03] MEDS: LEVOFLOXACIN 500 MG/D5W 100 ML 100 ML IV SCH (23:35)
[2017-08-04] VITALS (17 sets, daily range): BP systolic 96–166; BP diastolic 46–81
[2017-08-04] MEDS: IPRATROPIUM/ALBUTEROL SULFATE 3 ML SOLUTION IH SCH ×2 (02:08→06:04)
[2017-08-04 04:29] LABS: BASOPHILS % (AUTO) 0.3 % (0.0-5.0); EOSINOPHILS % (AUTO) 0.5 % (0.0-8.0); HEMATOCRIT 24.7 % (36-48); LYMPHOCYTES % (AUTO) 16.4 % (21.0-51.0); MEAN CORPUSCULAR HEMOGLOBIN 30.4 pg (27.0-33.0); MEAN CORPUSCULAR HGB CONC 33.8 g/dL (32.0-36.0); MEAN CORPUSCULAR VOLUME 89.8 fL (79-99); MONOCYTES % (AUTO) 9.2 % (3.0-13.0); NEUTROPHILS % (AUTO) 73.6 % (40.0-77.0); NUCLEATED RED BLOOD CELLS 0.4 % (0.0-0.19); PLATELET COUNT (AUTO) 401 K/uL (130-400); RED BLOOD CELL COUNT(AUTO) 2.75 MIL/uL (4.00-5.50); RED CELL DISTRIBUTION WIDTH 16.7 % (11.0-15.5); WHITE BLOOD COUNT (AUTO) 16.4 K/uL (4.8-10.8)
[2017-08-04 04:49] LABS: ALBUMIN 2.6 g/dL (3.5-5.0); CREATININE 0.9 mg/dL (0.5-1.5); POTASSIUM 4.2 mmol/L (3.5-5.1); TOTAL PROTEIN, SERUM 5.3 g/dL (6.0-8.3)
[2017-08-04 05:07] LABS: BILIRUBIN,TOTAL 0.9 mg/dL (0.2-1.0)
[2017-08-04] MEDS: SODIUM CHLORIDE 1,000 MG TAB PO SCH ×2 (06:00→12:00)
[2017-08-04] MEDS: MEROPENEM 1 GM VIAL IVP SCH ×3 (06:15→23:00)
[2017-08-04] MEDS ORDERED: ISOVUE-370 50ML VIAL IV ONE (07:08)
[2017-08-04] MEDS ORDERED: NITROGLYCERIN 5 MG/ML 10 ML VIAL IV ONE (07:08)
[2017-08-04] MEDS ORDERED: IOPAMIDOL-370 100 ML VIAL IV ONE (07:08)
[2017-08-04] MEDS ORDERED: LIDOCAINE HCL 2% 20ML ONE (07:08)
[2017-08-04] MEDS ORDERED: BIVALIRUDIN 250 MG/VIAL IV ONE (07:08)
[2017-08-04] MEDS: FOLIC ACID 1 MG TABLET PO SCH (08:17)
[2017-08-04] MEDS: FUROSEMIDE 20 MG TABLET PO SCH (08:17)
[2017-08-04] MEDS: CYANOCOBALAMIN (VITAMIN B-12) 1000 MCG/ML 1ML VIAL IM SCH (08:17)
[2017-08-04] MEDS: LOSARTAN 100 MG TABLET PO SCH (08:17)
[2017-08-04] MEDS: CALCIUM 600 + VITAMIN D 400 TABLET PO SCH (08:17)
[2017-08-04] MEDS: PREDNISONE 10 MG TABLET PO SCH (08:17)
[2017-08-04] MEDS: ASPIRIN 81 MG EC TAB PO SCH (08:17)
[2017-08-04] MEDS: FE FUMARATE/FA/MV, MIN COMB#15 1 TAB PO SCH (08:17)
[2017-08-04] MEDS: METOPROLOL TARTRATE 25 MG TAB PO SCH (08:17)
[2017-08-04] MEDS: FAMOTIDINE 20MG TAB 20 MG TAB PO SCH (08:18)
[2017-08-04] MEDS: MAGNESIUM OXIDE 400 MG TABLET PO SCH (08:18)
[2017-08-04] MEDS ORDERED: NITROGLYCERIN 4.1 GM SPRAY TL ONE (08:32)
[2017-08-04] MEDS ORDERED: POTASSIUM CHLORIDE 20 MEQ ERTAB PO SCH (09:00)
[2017-08-04] MEDS ORDERED: SODIUM CHLORIDE 0.9% 1000ML 1,000 ML IV SCH ×2 (09:06→15:00)
[2017-08-04] MEDS ORDERED: CEFUROXIME 1.5GM+NS 100ML 100 ML IV SCH ×2 (09:15→23:00)
[2017-08-04] MEDS: CEFUROXIME SODIUM 1.5 GM VIAL IVP SCH ×3 (09:30→23:07)
[2017-08-04] MEDS ORDERED: WATER FOR INJECTION,STERILE 20 ML VIAL IJ SCH (09:30)
[2017-08-04] MEDS ORDERED: HEPARIN SODIUM 1000UNIT/ML 10ML VIAL ONE (09:59)
[2017-08-04] MEDS ORDERED: ESMOLOL HCL 10 MG/ML 10 ML VIAL ONE (09:59)
[2017-08-04] MEDS ORDERED: GLYCOPYRROLATE 0.2 MG/ML 5 ML VIAL ONE (09:59)
[2017-08-04] MEDS ORDERED: MILRINONE-D5W 20 MG/100 ML 0 ML IV ONE (09:59)
[2017-08-04] MEDS ORDERED: MIDAZOLAM HCL 1 MG/ML 5ML VIAL ONE (09:59)
[2017-08-04] MEDS ORDERED: FENTANYL CITRATE PF 50 MCG/1 ML 20ML VIAL IJ ONE (09:59)
[2017-08-04] MEDS ORDERED: AMIODARONE HCL 900MG/18ML IV ONE (09:59)
[2017-08-04] MEDS ORDERED: ROCURONIUM BROMIDE 10MG/1ML 5ML VL ONE (09:59)
[2017-08-04] MEDS ORDERED: AMINOCAPROIC ACID 250 MG/ML 20 ML VIAL IV ONE (09:59)
[2017-08-04] MEDS ORDERED: LIDOCAINE PF 2% 5ML ABBOJECT ONE (09:59)
[2017-08-04] MEDS ORDERED: EPINEPHRINE 1 MG/ML AMPULE ONE (09:59)
[2017-08-04] MEDS ORDERED: PROTAMINE SULFATE 10 MG/ML 25ML VIAL IV ONE (09:59)
[2017-08-04] MEDS ORDERED: PROPOFOL 10 MG/ML 20ML VIAL IV ONE (09:59)
[2017-08-04] MEDS ORDERED: NOREPINEPHRINE BITARTRATE 1 MG/1 ML ML IV ONE ×2 (09:59→11:29)
[2017-08-04] MEDS: DOCUSATE SODIUM 100 MG CAP PO SCH (10:00)
[2017-08-04] MEDS ORDERED: BACITRACIN 50,000 UNIT VIAL ONE (10:16)
[2017-08-04] MEDS ORDERED: OCTYL 2-CYANOACRYLATE 1 EACH TP ONE ×3 (10:16→14:44)
[2017-08-04] MEDS ORDERED: PAPAVERINE HCL 30 MG/ML 2ML VIAL ONE (10:16)
[2017-08-04] MEDS ORDERED: NITROGLYCERIN 50 MG/D5% WATER 1 BOT ONE (10:38)
[2017-08-04] MEDS ORDERED: THROMBIN-JMI 5000 UNIT/VIAL TP ONE (11:31)
[2017-08-04 12:00] LABS: ABG BASE EXCESS 12.1 mmol/L (-2.0-3.0); ABG HCO3 36.2 mmol/L (21.0-28.0); ABG OXYGEN SATURATION 99.4 % (95.0-99.0); ABG PCO2 45 mmHg (32-45)
[2017-08-04 13:26] LABS: ABG BASE EXCESS 4.7 mmol/L (-2.0-3.0); ABG HCO3 29.2 mmol/L (21.0-28.0); ABG OXYGEN SATURATION 99.1 % (95.0-99.0); ABG PCO2 43 mmHg (32-45)
[2017-08-04] MEDS ORDERED: ROPIVACAINE 0.2% 2MG/ML 100ML VIAL IJ ONE (14:00)
[2017-08-04] MEDS ORDERED: SODIUM BICARB 50MEQ 50ML VIAL ONE ×2 (14:02→15:25)
[2017-08-04 14:14] LABS: ABG BASE EXCESS 2.3 mmol/L (-2.0-3.0); ABG HCO3 29.4 mmol/L (21.0-28.0); ABG OXYGEN SATURATION 99.4 % (95.0-99.0); ABG PCO2 61 mmHg (32-45)
[2017-08-04 14:25] LABS: ABG BASE EXCESS 4.4 mmol/L (-2.0-3.0); ABG HCO3 29.2 mmol/L (21.0-28.0); ABG OXYGEN SATURATION 99.1 % (95.0-99.0); ABG PCO2 46 mmHg (32-45)
[2017-08-04] MEDS ORDERED: EPHEDRINE SULFATE 50 MG/ML AMPULE ONE (14:43)
[2017-08-04] MEDS ORDERED: SODIUM CHLORIDE 0.9% 500ML 500 ML IV SCH (14:55)
[2017-08-04] MEDS ORDERED: DEXTROSE 50%-WATER 50 ML DISP.SYRIN IV PRN (15:00)
[2017-08-04] MEDS ORDERED: EPINEPHRINE 8 MG in SODIUM CHLORIDE 0.9% 250 ML IV PRN (15:00)
[2017-08-04] MEDS ORDERED: INSULIN REGULAR, HUMAN 3ML 100 UNIT in SODIUM CHLORIDE 0.9% 99 ML IV SCH ×2 (15:00)
[2017-08-04] MEDS ORDERED: SODIUM BICARB 8.4% 50ML SYRINGE IV PRN (15:00)
[2017-08-04] MEDS ORDERED: PROPOFOL 1000 MG/100 ML 100 ML IV PRN (15:00)
[2017-08-04] MEDS ORDERED: MORPHINE SULFATE 2 MG/ML 1ML SYG IV PRN (15:00)
[2017-08-04] MEDS ORDERED: HYDROCODONE/ACETAMINOPHEN 5/325 MG TAB PO PRN ×2 (15:00)
[2017-08-04] MEDS ORDERED: ACETAMINOPHEN 325 MG TAB PO PRN (15:00)
[2017-08-04] MEDS ORDERED: CALCIUM GLUCONATE 1 GM in SODIUM CHLORIDE 0.9% 50 ML IV PRN (15:00)
[2017-08-04] MEDS ORDERED: SODIUM CHLORIDE 0.9% 10 ML VIAL IVP PRN (15:00)
[2017-08-04] MEDS ORDERED: AMINOCAPROIC ACID 15,000 MG in SODIUM CHLORIDE 0.9% 250 ML IV SCH (15:00)
[2017-08-04] MEDS ORDERED: MORPHINE SULFATE 4 MG/1ML SYG IV PRN (15:00)
[2017-08-04] MEDS ORDERED: NICARDIPINE HCL 100 MG in SODIUM CHLORIDE 0.9% 60 ML IV PRN (15:00)
[2017-08-04] MEDS ORDERED: ALBUMIN (HUMAN) 5% 250 ML IV PRN (15:00)
[2017-08-04] MEDS ORDERED: GLUCAGON 1MG KIT 1 MG ML IM PRN (15:00)
[2017-08-04] MEDS ORDERED: SODIUM CHLORIDE 0.9% 250 ML IV PRN (15:00)
[2017-08-04] MEDS ORDERED: AMBU PUMP 1 EACH EACH MISC ONE (15:00)
[2017-08-04] MEDS ORDERED: POTASSIUM PHOS 15 mMOL+NS250ML 250 ML IV PRN (15:00)
[2017-08-04] MEDS ORDERED: NOREPINEPHRINE 4MG/NS 250ML 250 ML IV PRN (15:00)
[2017-08-04] MEDS ORDERED: ACETAMINOPHEN 650 MG SUPPOSITORY RC PRN (15:00)
[2017-08-04] MEDS ORDERED: ONDANSETRON HCL 4 MG/2 ML VIAL IV PRN (15:00)
[2017-08-04] MEDS ORDERED: NITROGLYCERIN 50 MG/D5% WATER 250 BOT IV SCH (15:00)
[2017-08-04 15:17] LABS: HEMATOCRIT 32.4 % (36-48); MEAN CORPUSCULAR HEMOGLOBIN 30.4 pg (27.0-33.0); MEAN CORPUSCULAR HGB CONC 33.9 g/dL (32.0-36.0); MEAN CORPUSCULAR VOLUME 89.6 fL (79-99); NUCLEATED RED BLOOD CELLS 0.3 % (0.0-0.19); PLATELET COUNT (AUTO) 338 K/uL (130-400); RED BLOOD CELL COUNT(AUTO) 3.61 MIL/uL (4.00-5.50); RED CELL DISTRIBUTION WIDTH 16.3 % (11.0-15.5)
[2017-08-04 15:19] LABS: ABG BASE EXCESS -1.5 mmol/L (-2.0-3.0); ABG HCO3 24.4 mmol/L (21.0-28.0); ABG PCO2 46 mmHg (32-45)
[2017-08-04 15:33] LABS: CREATININE 0.8 mg/dL (0.5-1.5); MAGNESIUM 1.5 mg/dL (1.80-2.40); PHOSPHORUS 4.1 mg/dL (2.5-4.9); POTASSIUM 4.1 mmol/L (3.5-5.1)
[2017-08-04 15:37] LABS: WHITE BLOOD COUNT (AUTO) 48.2 K/uL (4.8-10.8)
[2017-08-04] MEDS ORDERED: ALBUMIN (HUMAN) 5% 250 ML IV ONE ×2 (15:38→17:05)
[2017-08-04] MEDS ORDERED: AMIODARONE HCL 900 MG in DEXTROSE 5%-WATER 500 ML IV SCH (15:45)
[2017-08-04] MEDS ORDERED: AMIODARONE HCL 150 MG in DEXTROSE 5%-WATER 100 ML IV SCH (15:45)
[2017-08-04] MEDS: POTASSIUM CHLORIDE 20MEQ/100ML 100 ML IV PRN ×2 (15:53→23:08)
[2017-08-04] MEDS ORDERED: MAGNESIUM 2GM PREMIX 50ML 50 ML IV ONE (15:54)
[2017-08-04 16:49] LABS: BAND NEUTROPHILS % (MANUAL) 5 % (0-2); LYMPHOCYTES % (MANUAL) 10 % (22-44); MAN.DIFF COMMENT-IMPRESSION MANUAL DIFFERENTIAL; MONOCYTES % (MANUAL) 8 % (2-9); SEGMENTED NEUTROPHILS % 77 % (40-70)
[2017-08-04 17:00] LABS: ABG BASE EXCESS 0.6 mmol/L (-2.0-3.0); ABG HCO3 25.4 mmol/L (21.0-28.0); ABG OXYGEN SATURATION 97.8 % (95.0-99.0); ABG PCO2 41 mmHg (32-45)
[2017-08-04] MEDS: FAMOTIDINE/PF 20 MG/2 ML VIAL IV SCH (21:45)
[2017-08-04 22:27] LABS: ABG BASE EXCESS 1.2 mmol/L (-2.0-3.0); ABG OXYGEN SATURATION 96.5 % (95.0-99.0); ABG PCO2 42 mmHg (32-45)
[2017-08-04 23:48] LABS: ABG BASE EXCESS 1.8 mmol/L (-2.0-3.0); ABG HCO3 28.3 mmol/L (21.0-28.0); ABG OXYGEN SATURATION 94.7 % (95.0-99.0); ABG PCO2 53 mmHg (32-45)
[2017-08-05] VITALS (24 sets, daily range): BP systolic 93–153; BP diastolic 36–77
[2017-08-05 04:10] LABS: ABG BASE EXCESS 1.5 mmol/L (-2.0-3.0); ABG HCO3 27.3 mmol/L (21.0-28.0); ABG OXYGEN SATURATION 95.1 % (95.0-99.0); ABG PCO2 48 mmHg (32-45)
[2017-08-05 04:25] LABS: BASOPHILS % (AUTO) 0.2 % (0.0-5.0); EOSINOPHILS % (AUTO) 0.1 % (0.0-8.0); HEMATOCRIT 32.2 % (36-48); MEAN CORPUSCULAR HEMOGLOBIN 29.4 pg (27.0-33.0); MEAN CORPUSCULAR HGB CONC 33.1 g/dL (32.0-36.0); NEUTROPHILS % (AUTO) 90.2 % (40.0-77.0); NUCLEATED RED BLOOD CELLS 0.8 % (0.0-0.19); PLATELET COUNT (AUTO) 282 K/uL (130-400); RED BLOOD CELL COUNT(AUTO) 3.62 MIL/uL (4.00-5.50); RED CELL DISTRIBUTION WIDTH 16.7 % (11.0-15.5)
[2017-08-05 04:30] LABS: WHITE BLOOD COUNT (AUTO) 31.8 K/uL (4.8-10.8)
[2017-08-05 05:01] LABS: ALBUMIN 2.7 g/dL (3.5-5.0); BILIRUBIN,TOTAL 1.2 mg/dL (0.2-1.0); PHOSPHORUS 4.1 mg/dL (2.5-4.9); POTASSIUM 4.3 mmol/L (3.5-5.1); TOTAL PROTEIN, SERUM 4.6 g/dL (6.0-8.3)
[2017-08-05 05:43] LABS: LYMPHOCYTES % (AUTO) 4.5 % (21.0-51.0)
[2017-08-05 06:01] LABS: INR 1.11 (0.85-1.15); PROTHROMBIN TIME 11.6 SEC (9.6-11.6)
[2017-08-05] MEDS: MEROPENEM 1 GM VIAL IVP SCH ×3 (06:39→22:56)
[2017-08-05] MEDS: FUROSEMIDE 20 MG TABLET PO SCH ×2 (10:20→18:10)
[2017-08-05] MEDS: AMLODIPINE BESYLATE 5 MG TAB PO SCH (10:20)
[2017-08-05] MEDS: METOPROLOL TARTRATE 25 MG TAB PO SCH ×2 (10:20→20:06)
[2017-08-05] MEDS: POTASSIUM CHLORIDE 20 MEQ ERTAB PO SCH ×2 (10:20→20:06)
[2017-08-05] MEDS: ASPIRIN 81 MG EC TAB PO SCH (10:20)
[2017-08-05] MEDS: FAMOTIDINE/PF 20 MG/2 ML VIAL IV SCH ×2 (10:20→20:07)
[2017-08-05] MEDS: CEFUROXIME SODIUM 1.5 GM VIAL IVP SCH (11:17)
[2017-08-05] MEDS: ATORVASTATIN CALCIUM 20 MG TABLET PO SCH (20:06)
[2017-08-06] VITALS (23 sets, daily range): BP systolic 91–134; BP diastolic 36–82
[2017-08-06 04:33] LABS: HEMATOCRIT 28.5 % (36-48); MEAN CORPUSCULAR HEMOGLOBIN 29.6 pg (27.0-33.0); MEAN CORPUSCULAR HGB CONC 33.4 g/dL (32.0-36.0); MEAN CORPUSCULAR VOLUME 88.7 fL (79-99); NUCLEATED RED BLOOD CELLS 0.2 % (0.0-0.19); PLATELET COUNT (AUTO) 231 K/uL (130-400); RED BLOOD CELL COUNT(AUTO) 3.21 MIL/uL (4.00-5.50); RED CELL DISTRIBUTION WIDTH 16.6 % (11.0-15.5); WHITE BLOOD COUNT (AUTO) 27.9 K/uL (4.8-10.8)
[2017-08-06 04:42] LABS: CREATININE 0.8 mg/dL (0.5-1.5); MAGNESIUM 1.8 mg/dL (1.80-2.40); PHOSPHORUS 2.7 mg/dL (2.5-4.9); POTASSIUM 3.7 mmol/L (3.5-5.1)
[2017-08-06] MEDS ORDERED: AMIODARONE HCL 900MG/18ML IV ONE (05:32)
[2017-08-06] MEDS ORDERED: AMIODARONE HCL 900 MG in DEXTROSE 5%-WATER 500 ML IV SCH (05:45)
[2017-08-06] MEDS: MEROPENEM 1 GM VIAL IVP SCH ×3 (06:38→23:24)
[2017-08-06] MEDS: AMLODIPINE BESYLATE 5 MG TAB PO SCH (09:00)
[2017-08-06] MEDS: METOPROLOL TARTRATE 25 MG TAB PO SCH ×2 (09:00→22:31)
[2017-08-06] MEDS: MAGNESIUM 2GM PREMIX 50ML 50 ML IV PRN (09:27)
[2017-08-06] MEDS: FAMOTIDINE/PF 20 MG/2 ML VIAL IV SCH ×2 (10:06→20:35)
[2017-08-06] MEDS: FUROSEMIDE 20 MG TABLET PO SCH ×2 (10:06→16:13)
[2017-08-06] MEDS: ASPIRIN 81 MG EC TAB PO SCH (10:06)
[2017-08-06] MEDS: POTASSIUM CHLORIDE 20 MEQ ERTAB PO SCH ×2 (10:07→20:36)
[2017-08-06] MEDS: AMIODARONE HCL 200 MG TABLET PO SCH ×2 (10:08→20:36)
[2017-08-06] MEDS ORDERED: ALBUMIN (HUMAN) 5% 250 ML IV SCH (10:45)
[2017-08-06] MEDS ORDERED: CALCIUM GLUCONATE 1 GM in DEXTROSE 5%-WATER 50 ML IV SCH (11:07)
[2017-08-06] MEDS: ENOXAPARIN SODIUM 40 MG/0.4 ML SYRINGE SQ SCH (16:14)
[2017-08-06] MEDS: ATORVASTATIN CALCIUM 20 MG TABLET PO SCH (20:37)
[2017-08-06] MEDS ORDERED: AMIODARONE HCL 200 MG TABLET PO SCH (21:00)
[2017-08-07] VITALS (12 sets, daily range): BP systolic 104–130; BP diastolic 40–63
[2017-08-07 04:27] LABS: BASOPHILS % (AUTO) 0.3 % (0.0-5.0); EOSINOPHILS % (AUTO) 0.4 % (0.0-8.0); HEMATOCRIT 27.4 % (36-48); MEAN CORPUSCULAR HGB CONC 32.6 g/dL (32.0-36.0); MEAN CORPUSCULAR VOLUME 89.2 fL (79-99); MONOCYTES % (AUTO) 6.7 % (3.0-13.0); NEUTROPHILS % (AUTO) 87.6 % (40.0-77.0); NUCLEATED RED BLOOD CELLS 0.1 % (0.0-0.19); PLATELET COUNT (AUTO) 194 K/uL (130-400); RED BLOOD CELL COUNT(AUTO) 3.07 MIL/uL (4.00-5.50); RED CELL DISTRIBUTION WIDTH 16.4 % (11.0-15.5)
[2017-08-07 04:30] LABS: WHITE BLOOD COUNT (AUTO) 30.1 K/uL (4.8-10.8)
[2017-08-07 04:41] LABS: ALBUMIN 2.4 g/dL (3.5-5.0); CREATININE 0.9 mg/dL (0.5-1.5); POTASSIUM 3.9 mmol/L (3.5-5.1); TOTAL PROTEIN, SERUM 4.9 g/dL (6.0-8.3); URIC ACID 5.5 mg/dL (2.6-7.2)
[2017-08-07] MEDS: MEROPENEM 1 GM VIAL IVP SCH ×3 (06:24→22:42)
[2017-08-07] MEDS: FAMOTIDINE/PF 20 MG/2 ML VIAL IV SCH ×2 (08:38→21:54)
[2017-08-07] MEDS: FUROSEMIDE 20 MG TABLET PO SCH ×2 (08:38→16:08)
[2017-08-07] MEDS: POTASSIUM CHLORIDE 20 MEQ ERTAB PO SCH ×2 (08:38→21:54)
[2017-08-07] MEDS: ASPIRIN 81 MG EC TAB PO SCH (08:38)
[2017-08-07] MEDS: METOPROLOL TARTRATE 25 MG TAB PO SCH ×2 (08:38→21:54)
[2017-08-07] MEDS: AMIODARONE HCL 200 MG TABLET PO SCH (08:38)
[2017-08-07] MEDS: ENOXAPARIN SODIUM 40 MG/0.4 ML SYRINGE SQ SCH (08:39)
[2017-08-07] MEDS ORDERED: GUAIFENESIN 600 MG TABLET.ER PO PRN (09:45)
[2017-08-07] MEDS: FUROSEMIDE 40 MG TABLET PO SCH (16:08)
[2017-08-07] MEDS: ATORVASTATIN CALCIUM 20 MG TABLET PO SCH (21:54)
[2017-08-08 03:44] VITALS: BP 117/50
[2017-08-08 04:56] LABS: MAGNESIUM 1.9 mg/dL (1.80-2.40); PHOSPHORUS 2.1 mg/dL (2.5-4.9); POTASSIUM 3.8 mmol/L (3.5-5.1)
[2017-08-08 05:37] LABS: HEMATOCRIT 26.5 % (36-48); MEAN CORPUSCULAR HEMOGLOBIN 30.5 pg (27.0-33.0); MEAN CORPUSCULAR VOLUME 89.7 fL (79-99); NUCLEATED RED BLOOD CELLS 0.1 % (0.0-0.19); PLATELET COUNT (AUTO) 178 K/uL (130-400); RED BLOOD CELL COUNT(AUTO) 2.96 MIL/uL (4.00-5.50); RED CELL DISTRIBUTION WIDTH 16.1 % (11.0-15.5); WHITE BLOOD COUNT (AUTO) 20.6 K/uL (4.8-10.8)
[2017-08-08 05:44] LABS: LYMPHOCYTES % (MANUAL) 6 % (22-44); MAN.DIFF COMMENT-IMPRESSION MANUAL DIFFERENTIAL; MONOCYTES % (MANUAL) 6 % (2-9); SEGMENTED NEUTROPHILS % 88 % (40-70)
[2017-08-08 05:45] LABS: PLATELET MORPHOLOGY COMMENT ADEQUATE
[2017-08-08] MEDS: MEROPENEM 1 GM VIAL IVP SCH ×3 (06:49→22:39)
[2017-08-08 07:26] VITALS: BP 117/55
[2017-08-08] MEDS: POTASSIUM CHLORIDE 20 MEQ ERTAB PO SCH (10:13)
[2017-08-08] MEDS: ENOXAPARIN SODIUM 40 MG/0.4 ML SYRINGE SQ SCH (10:13)
[2017-08-08] MEDS: FAMOTIDINE/PF 20 MG/2 ML VIAL IV SCH ×2 (10:13→21:39)
[2017-08-08] MEDS: ASPIRIN 81 MG EC TAB PO SCH (10:13)
[2017-08-08] MEDS: METOPROLOL TARTRATE 25 MG TAB PO SCH ×2 (10:13→21:39)
[2017-08-08] MEDS: FUROSEMIDE 40 MG TABLET PO SCH (10:14)
[2017-08-08 11:07] VITALS: BP 118/54
[2017-08-08] MEDS: MAGNESIUM 2GM PREMIX 50ML 50 ML IV PRN (15:57)
[2017-08-08 16:15] VITALS: BP 131/66
[2017-08-08] MEDS ORDERED: ZOLPIDEM TARTRATE 5 MG TAB PO PRN (16:15)
[2017-08-08] MEDS: IPRATROPIUM 0.5 MG/2.5 ML INH IH SCH (19:03)
[2017-08-08 19:32] VITALS: BP 148/72
[2017-08-08] MEDS: ATORVASTATIN CALCIUM 20 MG TABLET PO SCH (21:39)
[2017-08-08 23:33] VITALS: BP 113/55
[2017-08-09] MEDS: IPRATROPIUM 0.5 MG/2.5 ML INH IH SCH ×3 (00:39→13:57)
[2017-08-09 03:44] VITALS: BP 123/59
[2017-08-09 04:59] LABS: BASOPHILS % (AUTO) 0.3 % (0.0-5.0); EOSINOPHILS % (AUTO) 0.7 % (0.0-8.0); HEMATOCRIT 24.6 % (36-48); LYMPHOCYTES % (AUTO) 10.7 % (21.0-51.0); MEAN CORPUSCULAR HEMOGLOBIN 29.5 pg (27.0-33.0); MEAN CORPUSCULAR HGB CONC 32.9 g/dL (32.0-36.0); MEAN CORPUSCULAR VOLUME 89.5 fL (79-99); MONOCYTES % (AUTO) 7.3 % (3.0-13.0); NUCLEATED RED BLOOD CELLS 0.2 % (0.0-0.19); PLATELET COUNT (AUTO) 148 K/uL (130-400); RED BLOOD CELL COUNT(AUTO) 2.75 MIL/uL (4.00-5.50); RED CELL DISTRIBUTION WIDTH 16.4 % (11.0-15.5); WHITE BLOOD COUNT (AUTO) 11.5 K/uL (4.8-10.8)
[2017-08-09 05:16] LABS: CREATININE 0.9 mg/dL (0.5-1.5); POTASSIUM 3.1 mmol/L (3.5-5.1)
[2017-08-09] MEDS: MEROPENEM 1 GM VIAL IVP SCH ×2 (06:28→16:24)
[2017-08-09 07:38] VITALS: BP 137/62
[2017-08-09] MEDS ORDERED: ENOXAPARIN SODIUM 30 MG/0.3 ML SQ SCH (09:00)
[2017-08-09] MEDS ORDERED: FUROSEMIDE 20 MG TABLET PO SCH (09:00)
[2017-08-09] MEDS ORDERED: POTASSIUM CHLORIDE 20 MEQ ERTAB PO SCH (09:00)
[2017-08-09] MEDS ORDERED: AMIODARONE HCL 200 MG TABLET PO SCH (09:00)
[2017-08-09] MEDS: ASPIRIN 81 MG EC TAB PO SCH (09:21)
[2017-08-09] MEDS: FAMOTIDINE/PF 20 MG/2 ML VIAL IV SCH (09:22)
[2017-08-09] MEDS: METOPROLOL TARTRATE 25 MG TAB PO SCH (09:22)
[2017-08-09 11:25] VITALS: BP 111/52
[2017-08-09 16:12] VITALS: BP 146/78
[2017-08-11] MEDS ORDERED: AMIODARONE HCL 200 MG TABLET PO SCH (09:00)
== END 2017-08-09 16:40 | DRG 233 ==
LOC: EDH 12:34 → MERGE 17:00 → EDHIP 17:00 → 3CH 22:39 → 2AH 08-03 10:28 → 2CV 08-04 11:36 → 2CH 08-05 16:45 → 2DH 08-07 23:50
PROVIDERS: ADMIT Family Medicine; ATTEND Family Medicine
PROC: 06BQ4ZZ Excision of Left Saphenous Vein, Percutaneous Endoscopic Approach (ICD-10-PCS; 2017-08-04)
PROC: B2151ZZ Fluoroscopy of Left Heart using Low Osmolar Contrast (ICD-10-PCS; 2017-08-04)
PROC: B4101ZZ Fluoroscopy of Abdominal Aorta using Low Osmolar Contrast (ICD-10-PCS; 2017-08-04)
PROC: B2111ZZ Fluoroscopy of Multiple Coronary Arteries using Low Osmolar Contrast (ICD-10-PCS; 2017-08-04)
PROC: 02100Z9 Bypass Coronary Artery, One Artery from Left Internal Mammary, Open Approach (ICD-10-PCS; principal; 2017-08-04 11:00)
PROC: 4A023N7 Measurement of Cardiac Sampling and Pressure, Left Heart, Percutaneous Approach (ICD-10-PCS; 2017-08-04 11:00)
PROC: 021009W Bypass Coronary Artery, One Artery from Aorta with Autologous Venous Tissue, Open Approach (ICD-10-PCS; 2017-08-04 11:00)
DX: I21.4 Non-ST elevation (NSTEMI) myocardial infarction (principal); J96.21 Acute and chronic respiratory failure with hypoxia; I50.21 Acute systolic (congestive) heart failure; E22.2 Syndrome of inappropriate secretion of antidiuretic hormone; E87.8 Other disorders of electrolyte and fluid balance, not elsewhere classified; I48.0 Paroxysmal atrial fibrillation; I42.9 Cardiomyopathy, unspecified; D62 Acute posthemorrhagic anemia; E86.0 Dehydration; D63.8 Anemia in other chronic diseases classified elsewhere; E11.9 Type 2 diabetes mellitus without complications; I50.43 Acute on chronic combined systolic (congestive) and diastolic (congestive) heart failure; J44.0 Chronic obstructive pulmonary disease with (acute) lower respiratory infection; I48.92 Unspecified atrial flutter; J44.1 Chronic obstructive pulmonary disease with (acute) exacerbation; I11.0 Hypertensive heart disease with heart failure; I34.0 Nonrheumatic mitral (valve) insufficiency; G47.00 Insomnia, unspecified; J20.9 Acute bronchitis, unspecified; K21.9 Gastro-esophageal reflux disease without esophagitis; K59.00 Constipation, unspecified; R63.1 Polydipsia; I25.119 Atherosclerotic heart disease of native coronary artery with unspecified angina pectoris; I25.5 Ischemic cardiomyopathy; I65.29 Occlusion and stenosis of unspecified carotid artery; E78.00 Pure hypercholesterolemia, unspecified; E86.1 Hypovolemia; F17.210 Nicotine dependence, cigarettes, uncomplicated; E78.5 Hyperlipidemia, unspecified; E87.6 Hypokalemia; Z90.710 Acquired absence of both cervix and uterus; Z90.49 Acquired absence of other specified parts of digestive tract; I25.2 Old myocardial infarction; Z87.01 Personal history of pneumonia (recurrent); Z99.81 Dependence on supplemental oxygen
CPT/HCPCS: 36415; 36600; 71045; 71046; 71250; 75630; 80048; 80053; 82330; 82435; 82533; 82550; 82553; 82803; 82947; 82948; 83036; 83605; 83735; 83874; 83880; 83930; 83935; 84100; 84132; 84295; 84300; 84443; 84484; 84550; 85007; 85018; 85025; 85027; 85347; 85610; 85651; 85730; 86038; 86255; 86431; 86850; 86900; 86901; 86922; 87040; 87071; 87205; 87633; 87804; 88313; 93005; 93306; 93458; 94002; 94060; 94150; 94640; 94660; 94664; 94667; 94668; 94760; 97039; A4218; A4606; A7048; C1769; C1894; J0171; J0282; J0583; J0610; J0697; J1160; J1644; J1650; J1815; J1940; J1956; J2001; J2060; J2185; J2250; J2260; J2440; J2704; J2720; J2795; J2920; J2930; J3010; J3420; J3475; J3480; J3490; J7030; J7040; J7060; J7512; J7608; P9016; P9045; Q9967

== ENCOUNTER 2017-09-08 12:37 | Inpatient (IN) | payer MEDICARE ==
[~2017-09-08] VITALS: Ht 167.6 cm; Wt 56.7 kg
[~2017-09-08 12:37] MED LIST changes: +ASPI-555 PO; +CALC-724 PO; +CYAN1000I IM; +FISH1CAP63 PO; +FOLI1TAB15 PO; -HEPARIN SODIUM 1000UNIT/ML 10ML VIAL IV ONE; +IRON1CAP35 PO; +LOSA1TAB42 PO; +LOVA20TA3 PO; +MAGN400T6 PO; +METO25TA6 PO
[2017-09-08] MEDS ORDERED: ONDANSETRON HCL 4 MG/2 ML VIAL IV PRN (14:30)
[2017-09-08] MEDS ORDERED: GUAIFENESIN-DM 200/20 MG 10 ML PO PRN (14:30)
[2017-09-08] MEDS ORDERED: POTASSIUM CHLORIDE 10% ELIXIR 20 MEQ/15 ML UDCUP PO PRN (14:30)
[2017-09-08] MEDS ORDERED: ACETAMINOPHEN 325 MG TAB PO PRN ×2 (14:30)
[2017-09-08] MEDS ORDERED: ACETAMINOPHEN-CODEINE 300/30MG TAB PO PRN (14:30)
[2017-09-08] MEDS ORDERED: NITROGLYCERIN 0.4 MG SL TAB SL PRN (14:30)
[2017-09-08] MEDS ORDERED: POTASSIUM CHLORIDE 20MEQ/100ML 100 ML IV PRN (14:30)
[2017-09-08] MEDS ORDERED: LIDOCAINE HCL-MPF 1% 2ML VIAL IVP PRN (14:30)
[2017-09-08] MEDS ORDERED: MORPHINE SULFATE 2 MG/ML 1ML SYG IV PRN (14:30)
[2017-09-08] MEDS ORDERED: MAG HYDROX/AL HYDROX/SIMETH ES 30 ML SUSP UDCUP PO PRN (14:30)
[2017-09-08] MEDS ORDERED: LACTULOSE 20 GM/30 ML UDCUP PO PRN (14:30)
[2017-09-08] MEDS ORDERED: IPRATROPIUM/ALBUTEROL SULFATE 3 ML SOLUTION IH PRN (14:30)
[2017-09-08 14:31] VITALS: BP 116/70
[2017-09-08 14:34] VITALS: BP 134/63
[2017-09-08 14:37] VITALS: BP 137/61
[2017-09-08 14:46] LABS: MEAN CORPUSCULAR HEMOGLOBIN 27.7 pg (27.0-33.0); MEAN CORPUSCULAR HGB CONC 32.3 g/dL (32.0-36.0); MEAN CORPUSCULAR VOLUME 85.8 fL (79-99); NUCLEATED RED BLOOD CELLS 0.1 % (0.0-0.19); PLATELET COUNT (AUTO) 300 K/uL (130-400); RED BLOOD CELL COUNT(AUTO) 2.68 MIL/uL (4.00-5.50); RED CELL DISTRIBUTION WIDTH 17.2 % (11.0-15.5); WHITE BLOOD COUNT (AUTO) 15.5 K/uL (4.8-10.8)
[2017-09-08 14:58] LABS: INR 1.15 (0.85-1.15); PARTIAL THROMBOPLASTIN TIME 27.7 SEC (26.3-35.5)
[2017-09-08 15:01] LABS: ALANINE AMINOTRANSFERASE 17 U/L (12-78); ALBUMIN 3.1 g/dL (3.5-5.0); ASPARTATE AMINOTRANSFERASE 20 U/L (10-37); BILIRUBIN,TOTAL 0.8 mg/dL (0.2-1.0); CARBON DIOXIDE 30 mmol/L (21-32); CHLORIDE 98 mmol/L (101-111); CREATININE 1.1 mg/dL (0.5-1.5); GLOMERULAR FILTR. RATE CALC 51 mL/min (>60); GLUCOSE,RANDOM 97 mg/dL (70-105); POTASSIUM 4.2 mmol/L (3.5-5.1); RETICULOCYTE % (AUTO) 3.23 % (0.42-2.23); SODIUM SERUM 138 mmol/L (136-145); TOTAL PROTEIN, SERUM 6.6 g/dL (6.0-8.3); UREA NITROGEN, BLOOD 18 mg/dL (7-18)
[2017-09-08 15:14] LABS: % IRON SATURATION 5.8 % (22-44); FERRITIN 70 ng/mL (15-150); IRON, SERUM 23 mcg/dL (50-170); TOTAL IRON BINDING CAPACITY 391 mcg/dL (250-450)
[2017-09-08 16:19] LABS: BAND NEUTROPHILS % (MANUAL) 2 % (0-2); BASOPHILS % (MANUAL) 1 % (0-2); LYMPHOCYTES % (MANUAL) 12 % (22-44); MAN.DIFF COMMENT-IMPRESSION MANUAL DIFFERENTIAL; MONOCYTES % (MANUAL) 4 % (2-9); SEGMENTED NEUTROPHILS % 81 % (40-70)
[2017-09-08 16:21] LABS: PLATELET MORPHOLOGY COMMENT LARGE PLTS PRESENT
[2017-09-08] MEDS ORDERED: FUROSEMIDE 10 MG/ML 2ML VIAL IV SCH (18:30)
[2017-09-08 19:00] VITALS: BP 143/69
[2017-09-08 19:07] LABS: HEMATOCRIT 22.1 % (36-48)
[2017-09-08] MEDS ORDERED: LACTULOSE 20 GM/30 ML UDCUP PO STA (22:39)
[2017-09-08] MEDS ORDERED: PANTOPRAZOLE SODIUM 80 MG in SODIUM CHLORIDE 0.9% 100 ML IV SCH (22:45)
[2017-09-08] MEDS ORDERED: MAGNESIUM CITRATE 296 ML SOLUTION PO ONE (22:45)
[2017-09-08 23:00] VITALS: BP 137/51
[2017-09-08 23:29] LABS: APPEARANCE,URINE Clear (CLEAR); BILIRUBIN,URINE Negative (NEGATIVE); COLOR,URINE Yellow (YELLOW); GLUCOSE, URINE (UA) Negative (NEGATIVE); KETONES,URINE Trace mg/dL (NEGATIVE); LEUKOCYTE ESTERASE ,URINE Negative (NEGATIVE); NITRATE,URINE Negative (NEGATIVE); OCCULT BLOOD,URINE Negative (NEGATIVE); PROTEIN,URINE Trace (NEGATIVE)
[2017-09-08] MEDS ORDERED: PEG 3350/NA SULF,BICARB,CL/KCL 4000 ML SOLN PO ONE (23:30)
[2017-09-08 23:40] LABS: BACTERIA,URINE None Seen /HPF (None Seen); RBC,URINE None Seen /HPF (0-1); SQUAMOUS EPITHELIAL CELL,UR Rare /LPF (0-2); WBC,URINE None Seen /HPF (0-1)
[2017-09-08] MEDS ORDERED: SODIUM CHLORIDE 0.9% 100 ML IV ONE (23:59)
[2017-09-09] VITALS (24 sets, daily range): BP systolic 100–140; BP diastolic 50–65
[2017-09-09] MEDS ORDERED: FUROSEMIDE 10 MG/ML 2ML VIAL ONE (03:15)
[2017-09-09 04:02] LABS: HEMATOCRIT 22.6 % (36-48); MEAN CORPUSCULAR HEMOGLOBIN 29.2 pg (27.0-33.0); MEAN CORPUSCULAR HGB CONC 34.6 g/dL (32.0-36.0); MEAN CORPUSCULAR VOLUME 84.3 fL (79-99); PLATELET COUNT (AUTO) 264 K/uL (130-400); RED BLOOD CELL COUNT(AUTO) 2.68 MIL/uL (4.00-5.50); RED CELL DISTRIBUTION WIDTH 16.9 % (11.0-15.5); WHITE BLOOD COUNT (AUTO) 18.5 K/uL (4.8-10.8)
[2017-09-09 04:07] LABS: POTASSIUM 3.8 mmol/L (3.5-5.1)
[2017-09-09 04:19] LABS: INR 1.16 (0.85-1.15); PARTIAL THROMBOPLASTIN TIME 29.4 SEC (26.3-35.5); PROTHROMBIN TIME 12.1 SEC (9.6-11.6)
[2017-09-09 04:32] LABS: B-TYPE NATRIURETIC PEPTIDE 706 pg/mL (0-100)
[2017-09-09] MEDS ORDERED: MAGNESIUM CITRATE 296 ML SOLUTION ONE (04:34)
[2017-09-09] MEDS: BISACODYL 5 MG TABLET.DR PO SCH ×2 (04:53→07:33)
[2017-09-09] MEDS: MAGNESIUM OXIDE 400 MG TABLET PO SCH ×2 (04:53→07:33)
[2017-09-09] MEDS ORDERED: SODIUM CHLORIDE 0.9% 100 ML IV ONE (05:04)
[2017-09-09] MEDS: MAGNESIUM 2GM PREMIX 50ML 50 ML IV SCH ×2 (05:23→07:34)
[2017-09-09] MEDS ORDERED: FUROSEMIDE 10 MG/ML 2ML VIAL IV SCH (08:00)
[2017-09-09] MEDS ORDERED: CEFTRIAXONE 1GM/D5W 50ML 50 ML IV SCH (08:00)
[2017-09-09] MEDS ORDERED: COMPOUND IV MISC 1 EACH IVSOLN MISC PRN (08:30)
[2017-09-09 08:39] LABS: HEMATOCRIT 25.3 % (36-48)
[2017-09-09] MEDS ORDERED: PANTOPRAZOLE SODIUM 80 MG in SODIUM CHLORIDE 0.9% 100 ML IV SCH (09:00)
[2017-09-09] MEDS: CEFTRIAXONE SODIUM 1 GM IVP SCH (10:59)
[2017-09-09] MEDS: IRON SUCROSE COMPLEX 100 MG in SODIUM CHLORIDE 0.9% 50 ML IV SCH (10:59)
[2017-09-09] MEDS ORDERED: PROPOFOL 10 MG/ML 20ML VIAL IV ONE ×2 (15:28→15:46)
[2017-09-09] MEDS ORDERED: ESMOLOL HCL 10 MG/ML 10 ML VIAL ONE (15:32)
[2017-09-09] MEDS: FUROSEMIDE 20 MG TABLET PO SCH (17:46)
[2017-09-10] VITALS (20 sets, daily range): BP systolic 97–131; BP diastolic 36–70
[2017-09-10 05:57] LABS: HEMATOCRIT 24.1 % (36-48); MEAN CORPUSCULAR HEMOGLOBIN 28.7 pg (27.0-33.0); MEAN CORPUSCULAR VOLUME 84.5 fL (79-99); NUCLEATED RED BLOOD CELLS 0.2 % (0.0-0.19); PLATELET COUNT (AUTO) 243 K/uL (130-400); RED BLOOD CELL COUNT(AUTO) 2.85 MIL/uL (4.00-5.50); RED CELL DISTRIBUTION WIDTH 17.3 % (11.0-15.5); WHITE BLOOD COUNT (AUTO) 12.8 K/uL (4.8-10.8)
[2017-09-10 06:07] LABS: CREATININE 0.9 mg/dL (0.5-1.5)
[2017-09-10] MEDS: FUROSEMIDE 20 MG TABLET PO SCH (09:00)
[2017-09-10] MEDS ORDERED: MEPERIDINE-PF 50 MG/ML SYG ONE (10:15)
[2017-09-10] MEDS ORDERED: MIDAZOLAM HCL 1 MG/ML 2ML VIAL ONE (10:16)
[2017-09-10] MEDS: CEFTRIAXONE SODIUM 1 GM IVP SCH (13:16)
[2017-09-10] MEDS: PANTOPRAZOLE SODIUM 40 MG TABLET.DR PO SCH (13:16)
[2017-09-10] MEDS: IRON SUCROSE COMPLEX 100 MG in SODIUM CHLORIDE 0.9% 50 ML IV SCH (13:16)
[2017-09-10] MEDS: POTASSIUM CHLORIDE 20 MEQ ERTAB PO PRN ×4 (13:22→23:40)
[2017-09-10] MEDS: ACETAMINOPHEN-CODEINE 300/30MG TAB PO PRN (23:43)
[2017-09-11] VITALS (8 sets, daily range): BP systolic 100–132; BP diastolic 44–66
[2017-09-11 06:13] LABS: HEMATOCRIT 21.9 % (36-48); MEAN CORPUSCULAR HEMOGLOBIN 30.2 pg (27.0-33.0); MEAN CORPUSCULAR HGB CONC 34.9 g/dL (32.0-36.0); MEAN CORPUSCULAR VOLUME 86.3 fL (79-99); NUCLEATED RED BLOOD CELLS 0.3 % (0.0-0.19); PLATELET COUNT (AUTO) 219 K/uL (130-400); RED BLOOD CELL COUNT(AUTO) 2.53 MIL/uL (4.00-5.50); RED CELL DISTRIBUTION WIDTH 17.3 % (11.0-15.5); WHITE BLOOD COUNT (AUTO) 10.5 K/uL (4.8-10.8)
[2017-09-11 06:18] LABS: CREATININE 0.9 mg/dL (0.5-1.5); POTASSIUM 4.8 mmol/L (3.5-5.1)
[2017-09-11] MEDS ORDERED: PANT40TA PO (07:48)
[2017-09-11] MEDS: IRON SUCROSE COMPLEX 100 MG in SODIUM CHLORIDE 0.9% 50 ML IV SCH (10:46)
[2017-09-11] MEDS: CALCIUM 600 + VITAMIN D 400 TABLET PO SCH (10:49)
[2017-09-11] MEDS: MAGNESIUM OXIDE 400 MG TABLET PO SCH (10:49)
[2017-09-11] MEDS: PANTOPRAZOLE SODIUM 40 MG TABLET.DR PO SCH (10:49)
[2017-09-11] MEDS: POTASSIUM CHLORIDE 10 MEQ/TAB.SA PO SCH (10:49)
[2017-09-11] MEDS: FUROSEMIDE 20 MG TABLET PO SCH (10:50)
[2017-09-11] MEDS: FOLIC ACID 1 MG TABLET PO SCH (10:50)
[2017-09-11] MEDS: CYANOCOBALAMIN (VITAMIN B-12) 1000 MCG/ML 1ML VIAL IM SCH (10:52)
[2017-09-11 11:49] LABS: HEMATOCRIT 22.8 % (36-48)
[2017-09-11] MEDS ORDERED: ATORVASTATIN CALCIUM 10 MG TABLET PO SCH (21:00)
[2017-09-11] MEDS ORDERED: FISH OIL 1000 MG/CAP PO SCH (21:00)
[2017-09-11] MEDS: ACETAMINOPHEN-CODEINE 300/30MG TAB PO PRN (22:25)
[2017-09-12 03:10] VITALS: BP 137/62
[2017-09-12 03:52] LABS: HEMATOCRIT 22.9 % (36-48)
[2017-09-12 08:00] VITALS: BP_SYST 116; BP_SYST 124; BP_SYST 136; BP_DIAS 61; BP_DIAS 69; BP_DIAS 72
[2017-09-12 11:00] VITALS: BP 133/69
[2017-09-12] MEDS: MAGNESIUM OXIDE 400 MG TABLET PO SCH (11:11)
[2017-09-12] MEDS: POTASSIUM CHLORIDE 10 MEQ/TAB.SA PO SCH (11:12)
[2017-09-12] MEDS: PANTOPRAZOLE SODIUM 40 MG TABLET.DR PO SCH (11:12)
[2017-09-12] MEDS: CALCIUM 600 + VITAMIN D 400 TABLET PO SCH (11:12)
[2017-09-12] MEDS: FOLIC ACID 1 MG TABLET PO SCH (11:12)
[2017-09-12] MEDS: FUROSEMIDE 20 MG TABLET PO SCH (11:12)
[2017-09-12] MEDS: CYANOCOBALAMIN (VITAMIN B-12) 1000 MCG/ML 1ML VIAL IM SCH (11:13)
[2017-09-12] MEDS: IRON SUCROSE COMPLEX 100 MG in SODIUM CHLORIDE 0.9% 50 ML IV SCH (11:13)
[2017-09-12 16:00] VITALS: BP 124/62
== END 2017-09-12 18:15 | disposition home or self-care (01) | DRG 377 ==
LOC: EDH 12:37 → EDHIP 12:38 → MERGE 12:38 → 3BH 14:09
PROVIDERS: ADMIT Internal Medicine; ATTEND Internal Medicine
PROC: 0DJD8ZZ Inspection of Lower Intestinal Tract, Via Natural or Artificial Opening Endoscopic (ICD-10-PCS; principal; 2017-09-09)
PROC: 0DJ08ZZ Inspection of Upper Intestinal Tract, Via Natural or Artificial Opening Endoscopic (ICD-10-PCS; 2017-09-10)
PROC: 30233N1 Transfusion of Nonautologous Red Blood Cells into Peripheral Vein, Percutaneous Approach (ICD-10-PCS; 2017-09-10)
DX: K92.1 Melena (principal); I50.43 Acute on chronic combined systolic (congestive) and diastolic (congestive) heart failure; K63.3 Ulcer of intestine; I48.0 Paroxysmal atrial fibrillation; D62 Acute posthemorrhagic anemia; K29.00 Acute gastritis without bleeding; D72.829 Elevated white blood cell count, unspecified; J44.9 Chronic obstructive pulmonary disease, unspecified; I95.1 Orthostatic hypotension; I11.0 Hypertensive heart disease with heart failure; I25.10 Atherosclerotic heart disease of native coronary artery without angina pectoris; Z95.1 Presence of aortocoronary bypass graft; K55.20 Angiodysplasia of colon without hemorrhage; K64.9 Unspecified hemorrhoids; K21.0 Gastro-esophageal reflux disease with esophagitis; K44.9 Diaphragmatic hernia without obstruction or gangrene; K57.90 Diverticulosis of intestine, part unspecified, without perforation or abscess without bleeding; R79.1 Abnormal coagulation profile; I25.2 Old myocardial infarction; Z87.11 Personal history of peptic ulcer disease; Z87.891 Personal history of nicotine dependence; Z90.49 Acquired absence of other specified parts of digestive tract; Z90.710 Acquired absence of both cervix and uterus; Z91.048 Other nonmedicinal substance allergy status
CPT/HCPCS: 36415; 36430; 71045; 80048; 80053; 81001; 82607; 82728; 82746; 83735; 83880; 84100; 85014; 85018; 85025; 85027; 85610; 85730; 86677; 86850; 86900; 86901; 86922; 87040; 87088; 93005; 94640; 94664; 99152; 99153; A4218; C9113; J0696; J1756; J1940; J2175; J2250; J2704; J3420; J3475; J3480; J3490; P9016

== ENCOUNTER 2018-05-21 12:57 | Emergency (ER) | payer MEDICARE, BC ==
[~2018-05-21 12:57] MED LIST changes: -IRON1CAP35 PO; +PANT40TA PO
[2018-05-21 15:10] LABS: BASOPHILS % (AUTO) 0.8 % (0.0-5.0); EOSINOPHILS % (AUTO) 0.9 % (0.0-8.0); HEMATOCRIT 34.1 % (36-48); LYMPHOCYTES % (AUTO) 29.3 % (21.0-51.0); MEAN CORPUSCULAR HEMOGLOBIN 32.2 pg (27.0-33.0); MEAN CORPUSCULAR HGB CONC 33.3 g/dL (32.0-36.0); MEAN CORPUSCULAR VOLUME 96.5 fL (79-99); MONOCYTES % (AUTO) 7.2 % (3.0-13.0); NEUTROPHILS % (AUTO) 61.8 % (40.0-77.0); PLATELET COUNT (AUTO) 177 K/uL (130-400); RED BLOOD CELL COUNT(AUTO) 3.53 MIL/uL (4.00-5.50); RED CELL DISTRIBUTION WIDTH 14.1 % (11.0-15.5); WHITE BLOOD COUNT (AUTO) 10.4 K/uL (4.8-10.8)
[2018-05-21 15:23] LABS: POTASSIUM 3.5 mmol/L (3.5-5.1)
[2018-05-21 15:27] LABS: ALBUMIN 3.1 g/dL (3.5-5.0); BILIRUBIN,TOTAL 0.7 mg/dL (0.2-1.0); TOTAL PROTEIN, SERUM 6.4 g/dL (6.0-8.3)
== END 2018-05-21 16:57 | disposition home or self-care (01) ==
LOC: EDH 12:57
CPT/HCPCS: 36415; 71045; 80053; 85025; 93005

== ENCOUNTER 2018-05-25 11:05 | Emergency (ER) | payer MEDICARE, BC ==
[2018-05-25] MEDS ORDERED: DEXAMETHASONE SOD PHOSPHATE 10MG/ML 1ML VIAL ONE (11:32)
== END 2018-05-25 12:44 | disposition home or self-care (01) ==
LOC: EDH 11:05
DX: L23.2 Allergic contact dermatitis due to cosmetics (principal); E78.5 Hyperlipidemia, unspecified; I10 Essential (primary) hypertension; J44.9 Chronic obstructive pulmonary disease, unspecified; I25.810 Atherosclerosis of coronary artery bypass graft(s) without angina pectoris; Z87.891 Personal history of nicotine dependence; Z91.048 Other nonmedicinal substance allergy status; Z95.1 Presence of aortocoronary bypass graft; Z90.710 Acquired absence of both cervix and uterus; Z98.890 Other specified postprocedural states
CPT/HCPCS: 96372; 99283; J1100

== ENCOUNTER 2018-05-27 10:01 | Emergency (ER) | payer MEDICARE, BC | END 2018-05-27 11:01 | disposition home or self-care (01) | LOC: EDH 10:01 | DX: H57.13 Ocular pain, bilateral (principal); I10 Essential (primary) hypertension; I25.810 Atherosclerosis of coronary artery bypass graft(s) without angina pectoris; J44.9 Chronic obstructive pulmonary disease, unspecified; E78.5 Hyperlipidemia, unspecified; Z90.710 Acquired absence of both cervix and uterus; Z90.49 Acquired absence of other specified parts of digestive tract; Z90.89 Acquired absence of other organs; Z98.890 Other specified postprocedural states; Z91.048 Other nonmedicinal substance allergy status; Z87.891 Personal history of nicotine dependence ==

== ENCOUNTER → 2018-08-23 | Outpatient (CLI) | payer MEDICARE ==
[~2018-08-23] MED LIST changes: +ATOR10 PO; +CARV6.2579 PO; -CYAN1000I IM; +DOXY100T19 PO; +FURO20TA4 PO; +LISI10TA7 PO; -LOSA1TAB42 PO; -LOVA20TA3 PO; -MAGN400T6 PO; -METO25TA6 PO; +OMEP20TA2 PO; -PANT40TA PO
== END | disposition home or self-care (01) ==
LOC: SHCH 11:41
PROVIDERS: ATTEND Internal Medicine Cardiovascular Disease
DX: I34.0 Nonrheumatic mitral (valve) insufficiency (principal); I07.8 Other rheumatic tricuspid valve diseases; I48.0 Paroxysmal atrial fibrillation; J44.9 Chronic obstructive pulmonary disease, unspecified; Z95.1 Presence of aortocoronary bypass graft
CPT/HCPCS: 93306

== ENCOUNTER 2020-09-08 18:08 | Inpatient (IN) | payer MEDICARE ==
[~2020-09-08] VITALS: Ht 167.6 cm; Wt 51.0 kg
[~2020-09-08 18:08] MED LIST changes: +ASPI-1197 PO; -ASPI-555 PO; +ASPI-556 PO; +CALC-1158 PO; -CALC-724 PO; +CARV3.12 PO; -CARV6.2579 PO; +CEPH-578 PO; -DOXY100T19 PO; -FURO20TA4 PO; +FURO40TA5 PO; +LISI10TA24 PO; -LISI10TA7 PO; -OMEP20TA2 PO; +POTA-79 PO
[2020-09-08] MEDS ORDERED: FUROSEMIDE 40MG VIAL ONE (18:33)
[2020-09-08] MEDS ORDERED: DILTIAZEM 50MG VIAL IV ONE (19:01)
[2020-09-08 19:36] LABS: BASOPHILS % (AUTO) 0.1 % (0.0-5.0); EOSINOPHILS % (AUTO) 0.1 % (0.0-8.0); HEMATOCRIT 33.7 % (36-48); LYMPHOCYTES % (AUTO) 4.1 % (21.0-51.0); MEAN CORPUSCULAR HEMOGLOBIN 30.4 pg (27.0-33.0); MEAN CORPUSCULAR HGB CONC 32.9 g/dL (32.0-36.0); MEAN CORPUSCULAR VOLUME 92.3 fL (79-99); MONOCYTES % (AUTO) 3.8 % (3.0-13.0); NEUTROPHILS % (AUTO) 90.7 % (40.0-77.0); PLATELET COUNT (AUTO) 293 K/uL (130-400); RED BLOOD CELL COUNT(AUTO) 3.65 MIL/uL (4.00-5.50); RED CELL DISTRIBUTION WIDTH 14.9 % (11.0-15.5); WHITE BLOOD COUNT (AUTO) 14.8 K/uL (4.8-10.8)
[2020-09-08 19:49] LABS: CREATININE 1.4 mg/dL (0.5-1.5); INR 1.1 (0.85-1.15); POTASSIUM 4.9 mmol/L (3.5-5.1); PROTHROMBIN TIME 11.9 SEC (9.6-11.6)
[2020-09-08 19:51] LABS: PARTIAL THROMBOPLASTIN TIME 25.9 SEC (26.3-35.5)
[2020-09-08 19:54] LABS: ALBUMIN 3.2 g/dL (3.5-5.0); BILIRUBIN,TOTAL 0.8 mg/dL (0.2-1.0); TOTAL PROTEIN, SERUM 6.5 g/dL (6.0-8.3)
[2020-09-08 19:59] LABS: B-TYPE NATRIURETIC PEPTIDE 713 pg/mL (0-100)
[2020-09-08] MEDS ORDERED: CEFTRIAXONE 1G VIAL ONE (20:09)
[2020-09-08] MEDS ORDERED: 0.9%NACL 1000ML 1,000 ML IV ONE (20:52)
[2020-09-08 23:03] LABS: APPEARANCE,URINE Turbid (CLEAR); BILIRUBIN,URINE Negative (NEGATIVE); COLOR,URINE Yellow (YELLOW); GLUCOSE, URINE (UA) Negative (NEGATIVE); KETONES,URINE Negative (NEGATIVE); LEUKOCYTE ESTERASE ,URINE Large (NEGATIVE); NITRATE,URINE Negative (NEGATIVE); OCCULT BLOOD,URINE Moderate (NEGATIVE); PH,URINE 6.5 (5.0-8.0); PROTEIN,URINE Negative (NEGATIVE); UROBILINOGEN,URINE 0.2 mg/dL (0.2-1.0)
[2020-09-08 23:15] LABS: BACTERIA,URINE Moderate /HPF (None Seen); RBC,URINE 0-1 /HPF (0-1)
[2020-09-08] MEDS ORDERED: ACETAMINOPHEN 325 MG TAB PO PRN ×2 (23:15)
[2020-09-08] MEDS: DOXYCYCLINE 100MG+NS 250ML 250 ML IV SCH (23:15)
[2020-09-08] MEDS ORDERED: ONDANSETRON 4MG INJ IV PRN (23:15)
[2020-09-09] MEDS ORDERED: DOXYCYCLINE 100MG+NS 250ML 250 ML IV ONE (00:21)
[2020-09-09 00:22] LABS: CREATINE KINASE, TOTAL 89 U/L (21-232); MYOGLOBIN 127 ng/mL (10-92); TROPONIN I < 0.04 ng/mL (0.00-0.06)
[2020-09-09] MEDS ORDERED: CLONAZEPAM 0.5 MG TABLET ONE (00:22)
[2020-09-09] MEDS ORDERED: APIXABAN 2.5 MG TABLET PO ONE (08:25)
[2020-09-09] MEDS ORDERED: CEFTRIAXONE 1G VIAL ONE (08:26)
[2020-09-09] MEDS ORDERED: FUROSEMIDE 40MG VIAL ONE (08:26)
[2020-09-09] MEDS ORDERED: CARVEDILOL 3.125 MG TABLET PO ONE (08:27)
[2020-09-09] MEDS ORDERED: FAMOTIDINE 20MG VIAL IV ONE (08:27)
[2020-09-09] MEDS ORDERED: CARVEDILOL 3.125 MG TABLET PO SCH (09:00)
[2020-09-09] MEDS ORDERED: FAMOTIDINE 20MG VIAL IV SCH (09:00)
[2020-09-09] MEDS: CEFTRIAXONE 1G VIAL IV SCH ×2 (09:00→22:41)
[2020-09-09] MEDS ORDERED: APIXABAN 2.5 MG TABLET PO SCH (09:00)
[2020-09-09] MEDS: FUROSEMIDE 40MG VIAL IVP SCH ×2 (09:00→22:41)
[2020-09-09 09:25] LABS: CARBON DIOXIDE 31 mmol/L (21-32); CHLORIDE 98 mmol/L (101-111); CREATINE KINASE, TOTAL 53 U/L (21-232); CREATININE 1.4 mg/dL (0.5-1.5); GLOMERULAR FILTR. RATE CALC 38 mL/min (>60); GLUCOSE,RANDOM 70 mg/dL (70-105); MYOGLOBIN 94 ng/mL (10-92); POTASSIUM 3.9 mmol/L (3.5-5.1); SODIUM SERUM 137 mmol/L (136-145); TROPONIN I < 0.04 ng/mL (0.00-0.06); UREA NITROGEN, BLOOD 37 mg/dL (7-18)
[2020-09-09] MEDS: KCL 20 MEQ ERTAB PO SCH ×2 (09:45→22:43)
[2020-09-09] MEDS ORDERED: METOPROLOL TARTRATE 50 MG TAB PO SCH (10:10)
[2020-09-09] MEDS ORDERED: METOPROLOL TARTRATE 50 MG TAB ONE (10:56)
[2020-09-09] MEDS ORDERED: ENOXAPARIN SODIUM 40 MG/0.4 ML SYRINGE SQ ONE (10:56)
[2020-09-09] MEDS ORDERED: KCL 20 MEQ ERTAB PO ONE (10:56)
[2020-09-09] MEDS: DOXYCYCLINE 100MG+NS 250ML 250 ML IV SCH ×2 (11:15→22:42)
[2020-09-09 15:00] LABS: CREATINE KINASE, TOTAL 44 U/L (21-232); MYOGLOBIN 94 ng/mL (10-92); TROPONIN I < 0.04 ng/mL (0.00-0.06)
[2020-09-09] MEDS ORDERED: DIPHENOXYLATE HCL/ATROPINE 2.5/0.025 MG TAB PO PRN (15:45)
[2020-09-09 16:19] VITALS: BP 100/50
[2020-09-09] MEDS ORDERED: POTA-79 PO (17:08)
[2020-09-09] MEDS ORDERED: ARFO15VI3 IH (17:08)
[2020-09-09] MEDS ORDERED: CLON2TAB11 PO (17:08)
[2020-09-09] MEDS ORDERED: CALC-1009 PO (17:08)
[2020-09-09] MEDS ORDERED: ATOR40TA71 PO (17:08)
[2020-09-09] MEDS ORDERED: BUDE9TAB2 PO (17:08)
[2020-09-09] MEDS ORDERED: LACT1CAP78 PO (17:08)
[2020-09-09] MEDS ORDERED: TORS20TA4 PO (17:08)
[2020-09-09] MEDS ORDERED: FAMC500T8 PO (17:08)
[2020-09-09] MEDS ORDERED: GABA600T10 PO (17:08)
[2020-09-09] MEDS ORDERED: DIPH1TAB24 PO (17:08)
[2020-09-09] MEDS: GABAPENTIN 300 MG CAPSULE PO SCH ×2 (17:58→22:41)
[2020-09-09 20:00] VITALS: BP 90/50
[2020-09-09] MEDS: REC MISC SCH (21:45)
[2020-09-09] MEDS: METOPROLOL TARTRATE 50 MG TAB PO SCH (22:41)
[2020-09-10] VITALS: BP 104/57
[2020-09-10] MEDS: REC MISC SCH ×8 (01:45→15:45)
[2020-09-10 04:00] VITALS: BP 99/53
[2020-09-10 04:38] LABS: CREATININE 1.4 mg/dL (0.5-1.5); POTASSIUM 3.7 mmol/L (3.5-5.1)
[2020-09-10 05:59] LABS: BASOPHILS % (AUTO) 0.2 % (0.0-5.0); EOSINOPHILS % (AUTO) 0.4 % (0.0-8.0); HEMATOCRIT 32.2 % (36-48); MEAN CORPUSCULAR HEMOGLOBIN 29.8 pg (27.0-33.0); MEAN CORPUSCULAR HGB CONC 31.4 g/dL (32.0-36.0); MONOCYTES % (AUTO) 6.4 % (3.0-13.0); NEUTROPHILS % (AUTO) 73.8 % (40.0-77.0); PLATELET COUNT (AUTO) 261 K/uL (130-400); RED BLOOD CELL COUNT(AUTO) 3.39 MIL/uL (4.00-5.50); RED CELL DISTRIBUTION WIDTH 15.1 % (11.0-15.5); WHITE BLOOD COUNT (AUTO) 13.7 K/uL (4.8-10.8)
[2020-09-10 07:23] VITALS: BP 97/59
[2020-09-10] MEDS ORDERED: MAGNESIUM 2GM PREMIX 50ML 50 ML IV PRN (08:45)
[2020-09-10] MEDS ORDERED: FLUCONAZOLE 100 MG TAB PO ONE (08:45)
[2020-09-10] MEDS ORDERED: PHARMACY COMMUNICATION MISC SCH ×2 (08:45→19:45)
[2020-09-10] MEDS: FAMCICLOVIR 500 MG PO SCH (09:00)
[2020-09-10] MEDS ORDERED: LOPERAMIDE HCL 2 MG CAP PO ONE (09:56)
[2020-09-10] MEDS: LACTOBACILLUS RHAMNOSUS GG 1 EACH CAP.SPRINK PO SCH (09:58)
[2020-09-10] MEDS: KCL 20 MEQ ERTAB PO SCH ×2 (09:58→20:47)
[2020-09-10] MEDS: BUDESONIDE 3 MG CAP.ER.24H PO SCH (09:58)
[2020-09-10] MEDS: GABAPENTIN 300 MG CAPSULE PO SCH ×4 (09:58→20:46)
[2020-09-10] MEDS: CEFTRIAXONE 1G VIAL IV SCH ×2 (09:58→20:45)
[2020-09-10] MEDS: FUROSEMIDE 40MG VIAL IVP SCH ×2 (09:59→20:48)
[2020-09-10] MEDS: CA 600MG+VIT D 400 UNIT TAB 1 TAB TABLET PO SCH (09:59)
[2020-09-10] MEDS: METOPROLOL TARTRATE 50 MG TAB PO SCH ×2 (09:59→20:47)
[2020-09-10] MEDS: ATORVASTATIN 40 MG TABLET PO SCH (09:59)
[2020-09-10] MEDS: ENOXAPARIN SODIUM 60 MG/0.6 ML SQ SCH (10:03)
[2020-09-10] MEDS ORDERED: MAG/AL/SIMETH 30 ML+LIDO2% VISC+DIPHEN 75MG 30ML PO PRN ×3 (10:30)
[2020-09-10] MEDS ORDERED: COMPOUND PO MISCELLANEOUS 1 EACH MISC MISC PRN (10:30)
[2020-09-10 11:16] VITALS: BP 103/73
[2020-09-10] MEDS: DOXYCYCLINE 100MG+NS 250ML 250 ML IV SCH ×2 (12:48→23:09)
[2020-09-10] MEDS: SOLU-MEDROL 40MG VIAL IVP SCH ×2 (12:48→20:51)
[2020-09-10] MEDS: BUDESONIDE 0.5 MG/2 ML INH IH SCH ×2 (13:26→18:30)
[2020-09-10] MEDS: LOPERAMIDE HCL 2 MG CAP PO PRN (15:48)
[2020-09-10 16:02] VITALS: BP 118/69
[2020-09-10 19:00] VITALS: BP 131/74
[2020-09-10] MEDS: FAMOTIDINE 20MG VIAL IV SCH (20:45)
[2020-09-10] MEDS ORDERED: CLONAZEPAM 2 MG TABLET PO PRN (21:00)
[2020-09-11] VITALS: BP 113/63
[2020-09-11 04:00] VITALS: BP 125/79
[2020-09-11] MEDS: SOLU-MEDROL 40MG VIAL IVP SCH ×3 (04:05→21:04)
[2020-09-11 06:01] LABS: CREATININE 1.3 mg/dL (0.5-1.5); POTASSIUM 4.5 mmol/L (3.5-5.1)
[2020-09-11] MEDS: BUDESONIDE 0.5 MG/2 ML INH IH SCH ×2 (07:35→19:19)
[2020-09-11 08:37] VITALS: BP 100/68
[2020-09-11] MEDS: FAMCICLOVIR 500 MG PO SCH (09:00)
[2020-09-11] MEDS: KCL 20 MEQ ERTAB PO SCH ×2 (09:00→21:06)
[2020-09-11 09:11] LABS: BASOPHILS % (AUTO) 0.1 % (0.0-5.0); HEMATOCRIT 31.9 % (36-48); LYMPHOCYTES % (AUTO) 5.2 % (21.0-51.0); MEAN CORPUSCULAR HEMOGLOBIN 30.4 pg (27.0-33.0); MEAN CORPUSCULAR HGB CONC 32.6 g/dL (32.0-36.0); MEAN CORPUSCULAR VOLUME 93.3 fL (79-99); MONOCYTES % (AUTO) 1.9 % (3.0-13.0); NEUTROPHILS % (AUTO) 91.6 % (40.0-77.0); PLATELET COUNT (AUTO) 243 K/uL (130-400); RED BLOOD CELL COUNT(AUTO) 3.42 MIL/uL (4.00-5.50); RED CELL DISTRIBUTION WIDTH 15.3 % (11.0-15.5); WHITE BLOOD COUNT (AUTO) 9.1 K/uL (4.8-10.8)
[2020-09-11] MEDS: CEFTRIAXONE 1G VIAL IV SCH ×2 (09:37→21:05)
[2020-09-11] MEDS: FUROSEMIDE 40MG VIAL IVP SCH ×2 (09:37→21:05)
[2020-09-11] MEDS: ENOXAPARIN SODIUM 60 MG/0.6 ML SQ SCH (09:38)
[2020-09-11] MEDS: LACTOBACILLUS RHAMNOSUS GG 1 EACH CAP.SPRINK PO SCH (09:38)
[2020-09-11] MEDS: GABAPENTIN 300 MG CAPSULE PO SCH ×4 (09:38→21:04)
[2020-09-11] MEDS: ATORVASTATIN 40 MG TABLET PO SCH (09:39)
[2020-09-11] MEDS: CA 600MG+VIT D 400 UNIT TAB 1 TAB TABLET PO SCH (09:39)
[2020-09-11] MEDS: BUDESONIDE 3 MG CAP.ER.24H PO SCH (09:39)
[2020-09-11] MEDS: METOPROLOL TARTRATE 50 MG TAB PO SCH ×2 (09:42→21:06)
[2020-09-11 11:44] VITALS: BP 125/69
[2020-09-11] MEDS: DOXYCYCLINE 100MG+NS 250ML 250 ML IV SCH (13:12)
[2020-09-11] MEDS: REC MISC SCH ×12 (13:45→23:45)
[2020-09-11] MEDS: LOPERAMIDE HCL 2 MG CAP PO PRN (14:11)
[2020-09-11] MEDS ORDERED: LOPERAMIDE 1 MG/7.5 ML UDCUP PO ONE (14:23)
[2020-09-11 16:16] VITALS: BP 103/61
[2020-09-11 19:00] VITALS: BP 109/80
[2020-09-11] MEDS: FAMOTIDINE 20MG VIAL IV SCH (21:04)
[2020-09-12] VITALS: BP 105/63
[2020-09-12] MEDS: DOXYCYCLINE 100MG+NS 250ML 250 ML IV SCH ×3 (00:11→23:23)
[2020-09-12] MEDS: REC MISC SCH ×12 (01:45→23:24)
[2020-09-12 04:00] VITALS: BP 107/66
[2020-09-12] MEDS: SOLU-MEDROL 40MG VIAL IVP SCH ×3 (05:04→21:28)
[2020-09-12 06:16] LABS: CREATININE 1.7 mg/dL (0.5-1.5); POTASSIUM 5.5 mmol/L (3.5-5.1)
[2020-09-12 08:00] VITALS: BP 108/73
[2020-09-12] MEDS: BUDESONIDE 0.5 MG/2 ML INH IH SCH ×2 (09:00→21:17)
[2020-09-12] MEDS: FAMCICLOVIR 500 MG PO SCH (09:00)
[2020-09-12] MEDS: CEFTRIAXONE 1G VIAL IV SCH ×2 (09:00→21:24)
[2020-09-12] MEDS: KCL 20 MEQ ERTAB PO SCH ×2 (09:00→21:00)
[2020-09-12 11:37] VITALS: BP 114/65
[2020-09-12] MEDS: GABAPENTIN 300 MG CAPSULE PO SCH ×4 (11:47→21:26)
[2020-09-12] MEDS: ENOXAPARIN SODIUM 60 MG/0.6 ML SQ SCH (11:48)
[2020-09-12] MEDS: METOPROLOL TARTRATE 50 MG TAB PO SCH ×2 (11:48→21:26)
[2020-09-12] MEDS: CA 600MG+VIT D 400 UNIT TAB 1 TAB TABLET PO SCH (11:49)
[2020-09-12] MEDS: ATORVASTATIN 40 MG TABLET PO SCH (11:49)
[2020-09-12] MEDS: LACTOBACILLUS RHAMNOSUS GG 1 EACH CAP.SPRINK PO SCH (11:49)
[2020-09-12] MEDS: BUDESONIDE 3 MG CAP.ER.24H PO SCH (11:50)
[2020-09-12] MEDS: FUROSEMIDE 40MG VIAL IVP SCH ×3 (11:51→21:25)
[2020-09-12 16:00] VITALS: BP 112/61
[2020-09-12 20:00] VITALS: BP 132/79
[2020-09-12] MEDS: FAMOTIDINE 20MG VIAL IV SCH (21:24)
[2020-09-13] VITALS: BP 95/66
[2020-09-13] MEDS: REC MISC SCH ×12 (01:45→20:46)
[2020-09-13 03:00] VITALS: BP 124/89
[2020-09-13] MEDS: SOLU-MEDROL 40MG VIAL IVP SCH (05:51)
[2020-09-13 06:10] LABS: BASOPHILS % (AUTO) 0.1 % (0.0-5.0); HEMATOCRIT 32.8 % (36-48); MEAN CORPUSCULAR HEMOGLOBIN 30.4 pg (27.0-33.0); MEAN CORPUSCULAR HGB CONC 32.3 g/dL (32.0-36.0); MONOCYTES % (AUTO) 2.8 % (3.0-13.0); NEUTROPHILS % (AUTO) 92.3 % (40.0-77.0); NUCLEATED RED BLOOD CELLS 0.1 % (0.0-0.19); PLATELET COUNT (AUTO) 260 K/uL (130-400); RED BLOOD CELL COUNT(AUTO) 3.49 MIL/uL (4.00-5.50); RED CELL DISTRIBUTION WIDTH 15.5 % (11.0-15.5); WHITE BLOOD COUNT (AUTO) 15.8 K/uL (4.8-10.8)
[2020-09-13 06:27] LABS: ALBUMIN 2.7 g/dL (3.5-5.0); BILIRUBIN,TOTAL 0.4 mg/dL (0.2-1.0); CREATININE 1.8 mg/dL (0.5-1.5); POTASSIUM 4.9 mmol/L (3.5-5.1); TOTAL PROTEIN, SERUM 5.5 g/dL (6.0-8.3)
[2020-09-13] MEDS: BUDESONIDE 0.5 MG/2 ML INH IH SCH ×2 (06:29→18:24)
[2020-09-13 07:51] VITALS: BP 119/72
[2020-09-13] MEDS: KCL 20 MEQ ERTAB PO SCH ×2 (09:00→20:45)
[2020-09-13] MEDS: FAMCICLOVIR 500 MG PO SCH (09:00)
[2020-09-13] MEDS: CEFTRIAXONE 1G VIAL IV SCH ×2 (09:49→20:42)
[2020-09-13] MEDS: FUROSEMIDE 40MG VIAL IVP SCH ×3 (09:49→20:42)
[2020-09-13] MEDS: METOPROLOL TARTRATE 50 MG TAB PO SCH ×2 (09:50→20:43)
[2020-09-13] MEDS: CA 600MG+VIT D 400 UNIT TAB 1 TAB TABLET PO SCH (09:50)
[2020-09-13] MEDS: BUDESONIDE 3 MG CAP.ER.24H PO SCH (09:50)
[2020-09-13] MEDS: GABAPENTIN 300 MG CAPSULE PO SCH ×4 (09:50→20:43)
[2020-09-13] MEDS: LACTOBACILLUS RHAMNOSUS GG 1 EACH CAP.SPRINK PO SCH (09:50)
[2020-09-13] MEDS: ATORVASTATIN 40 MG TABLET PO SCH (09:50)
[2020-09-13] MEDS: ENOXAPARIN SODIUM 60 MG/0.6 ML SQ SCH (09:51)
[2020-09-13 11:57] VITALS: BP 103/58
[2020-09-13] MEDS ORDERED: DOXYCYCLINE HYCLATE 100 MG TABLET PO SCH (12:00)
[2020-09-13] MEDS: PREDNISONE 10 MG TABLET PO SCH (12:08)
[2020-09-13 16:00] VITALS: BP 134/81
[2020-09-13 20:00] VITALS: BP 103/69
[2020-09-13] MEDS: FAMOTIDINE 20MG VIAL IV SCH (20:41)
[2020-09-13] MEDS: DOXYCYCLINE HYCLATE 100 MG TABLET PO SCH (20:42)
[2020-09-14] VITALS: BP 124/82
[2020-09-14 04:00] VITALS: BP 109/64
[2020-09-14 04:17] LABS: BASOPHILS % (AUTO) 0.2 % (0.0-5.0); HEMATOCRIT 31.8 % (36-48); LYMPHOCYTES % (AUTO) 5.6 % (21.0-51.0); MEAN CORPUSCULAR HEMOGLOBIN 29.4 pg (27.0-33.0); MEAN CORPUSCULAR HGB CONC 31.1 g/dL (32.0-36.0); MEAN CORPUSCULAR VOLUME 94.4 fL (79-99); MONOCYTES % (AUTO) 5.9 % (3.0-13.0); NEUTROPHILS % (AUTO) 85.8 % (40.0-77.0); PLATELET COUNT (AUTO) 230 K/uL (130-400); RED BLOOD CELL COUNT(AUTO) 3.37 MIL/uL (4.00-5.50); RED CELL DISTRIBUTION WIDTH 15.9 % (11.0-15.5); WHITE BLOOD COUNT (AUTO) 10.9 K/uL (4.8-10.8)
[2020-09-14 04:35] LABS: ALBUMIN 2.7 g/dL (3.5-5.0); BILIRUBIN,TOTAL 0.3 mg/dL (0.2-1.0); CREATININE 1.6 mg/dL (0.5-1.5); POTASSIUM 4.2 mmol/L (3.5-5.1); TOTAL PROTEIN, SERUM 5.2 g/dL (6.0-8.3)
[2020-09-14 06:23] VITALS: BP 101/61
[2020-09-14] MEDS: BUDESONIDE 0.5 MG/2 ML INH IH SCH (06:23)
[2020-09-14] MEDS: METOPROLOL TARTRATE 50 MG TAB PO SCH (09:00)
[2020-09-14] MEDS: FAMCICLOVIR 500 MG PO SCH (09:00)
[2020-09-14] MEDS: ATORVASTATIN 40 MG TABLET PO SCH (09:44)
[2020-09-14] MEDS: LACTOBACILLUS RHAMNOSUS GG 1 EACH CAP.SPRINK PO SCH (09:44)
[2020-09-14] MEDS: CA 600MG+VIT D 400 UNIT TAB 1 TAB TABLET PO SCH (09:44)
[2020-09-14] MEDS: GABAPENTIN 300 MG CAPSULE PO SCH ×3 (09:44→18:18)
[2020-09-14] MEDS: CEFTRIAXONE 1G VIAL IV SCH (09:45)
[2020-09-14] MEDS: DOXYCYCLINE HYCLATE 100 MG TABLET PO SCH (09:45)
[2020-09-14] MEDS: ENOXAPARIN SODIUM 60 MG/0.6 ML SQ SCH (09:45)
[2020-09-14] MEDS: FUROSEMIDE 40MG VIAL IVP SCH ×2 (09:46→14:17)
[2020-09-14] MEDS: KCL 20 MEQ ERTAB PO SCH (09:46)
[2020-09-14] MEDS: PREDNISONE 10 MG TABLET PO SCH (09:46)
[2020-09-14] MEDS: BUDESONIDE 3 MG CAP.ER.24H PO SCH (09:47)
[2020-09-14 11:18] VITALS: BP 115/64
[2020-09-14 15:49] VITALS: BP 115/80
[2020-09-14 20:05] VITALS: BP 122/77
[2020-09-14] MEDS ORDERED: METO50 PO (20:07)
[2020-09-14] MEDS ORDERED: FURO-151 PO (20:20)
[2020-09-19] MEDS ORDERED: PREDNISONE 20 MG TABLET PO SCH (12:00)
== END 2020-09-14 20:45 | disposition home or self-care (01) | DRG 177 ==
LOC: EDH 18:08 → EDHIP 23:05 → 4AH 09-09 11:55
PROVIDERS: ADMIT Internal Medicine; ATTEND Internal Medicine
DX: J15.6 Pneumonia due to other Gram-negative bacteria (principal); I50.43 Acute on chronic combined systolic (congestive) and diastolic (congestive) heart failure; J44.0 Chronic obstructive pulmonary disease with (acute) lower respiratory infection; J96.11 Chronic respiratory failure with hypoxia; N39.0 Urinary tract infection, site not specified; E87.1 Hypo-osmolality and hyponatremia; I11.0 Hypertensive heart disease with heart failure; I48.0 Paroxysmal atrial fibrillation; I27.20 Pulmonary hypertension, unspecified; E78.5 Hyperlipidemia, unspecified; I25.10 Atherosclerotic heart disease of native coronary artery without angina pectoris; I49.5 Sick sinus syndrome; N28.9 Disorder of kidney and ureter, unspecified; G47.10 Hypersomnia, unspecified; E87.6 Hypokalemia; R53.81 Other malaise; Z20.822 Contact with and (suspected) exposure to COVID-19; Z79.899 Other long term (current) drug therapy; Z91.041 Radiographic dye allergy status; Z91.048 Other nonmedicinal substance allergy status; I25.2 Old myocardial infarction; Z87.891 Personal history of nicotine dependence; Z95.1 Presence of aortocoronary bypass graft; Z95.0 Presence of cardiac pacemaker; Z83.3 Family history of diabetes mellitus; Z80.9 Family history of malignant neoplasm, unspecified; Z82.49 Family history of ischemic heart disease and other diseases of the circulatory system
CPT/HCPCS: 36415; 71045; 71250; 80048; 80053; 81001; 82550; 83735; 83874; 83880; 84145; 84484; 85025; 85610; 85730; 86738; 87088; 87426; 87449; 93005; 93306; 93970; 94640; 94664; 99291; G0378; J0696; J1650; J1940; J2920; J3475; J3490; J7030; J7512; U0003

== ENCOUNTER 2020-09-15 20:00 | Observation (INO) | payer MEDICARE ==
[~2020-09-15] VITALS: Ht 167.6 cm; Wt 59.0 kg
[~2020-09-15 20:00] MED LIST changes: +ARFO15VI3 IH; -ASPI-1197 PO; -ASPI-556 PO; -ATOR10 PO; +ATOR40TA71 PO; +BUDE9TAB2 PO; +CALC-1009 PO; -CALC-1158 PO; -CARV3.12 PO; -CEPH-578 PO; +CLON2TAB11 PO; +DIPH1TAB24 PO; +FAMC500T8 PO; -FISH1CAP63 PO; -FOLI1TAB15 PO; +FURO-151 PO; -FURO40TA5 PO; +GABA600T10 PO; +LACT1CAP78 PO; -LISI10TA24 PO; +METO50 PO
[2020-09-15 20:48] LABS: BASOPHILS % (AUTO) 0.2 % (0.0-5.0); EOSINOPHILS % (AUTO) 0.2 % (0.0-8.0); HEMATOCRIT 35.1 % (36-48); LYMPHOCYTES % (AUTO) 12.1 % (21.0-51.0); MEAN CORPUSCULAR HEMOGLOBIN 30.6 pg (27.0-33.0); MEAN CORPUSCULAR HGB CONC 32.8 g/dL (32.0-36.0); MEAN CORPUSCULAR VOLUME 93.4 fL (79-99); MONOCYTES % (AUTO) 7.1 % (3.0-13.0); NEUTROPHILS % (AUTO) 77.5 % (40.0-77.0); PLATELET COUNT (AUTO) 213 K/uL (130-400); RED BLOOD CELL COUNT(AUTO) 3.76 MIL/uL (4.00-5.50); RED CELL DISTRIBUTION WIDTH 16.1 % (11.0-15.5); WHITE BLOOD COUNT (AUTO) 13.7 K/uL (4.8-10.8)
[2020-09-15 21:00] LABS: CREATININE 1.5 mg/dL (0.5-1.5); POTASSIUM 4.6 mmol/L (3.5-5.1)
[2020-09-15 21:02] LABS: INR 1.27 (0.85-1.15); PROTHROMBIN TIME 13.5 SEC (9.6-11.6)
[2020-09-15 21:03] LABS: PARTIAL THROMBOPLASTIN TIME 28.8 SEC (26.3-35.5)
[2020-09-15 21:07] LABS: BILIRUBIN,TOTAL 0.6 mg/dL (0.2-1.0); TOTAL PROTEIN, SERUM 5.9 g/dL (6.0-8.3)
[2020-09-15 21:49] LABS: APPEARANCE,URINE Turbid (CLEAR); BILIRUBIN,URINE Negative (NEGATIVE); COLOR,URINE Yellow (YELLOW); GLUCOSE, URINE (UA) Negative (NEGATIVE); KETONES,URINE Negative (NEGATIVE); LEUKOCYTE ESTERASE ,URINE Small (NEGATIVE); NITRATE,URINE Negative (NEGATIVE); OCCULT BLOOD,URINE Nonhemolyzed Trace (NEGATIVE); PH,URINE 5.5 (5.0-8.0); PROTEIN,URINE Negative (NEGATIVE); UROBILINOGEN,URINE 0.2 mg/dL (0.2-1.0)
[2020-09-15 21:57] LABS: BACTERIA,URINE Few /HPF (None Seen); SQUAMOUS EPITHELIAL CELL,UR Few /HPF (0-2)
[2020-09-15] MEDS ORDERED: FUROSEMIDE 40MG VIAL ONE (22:18)
[2020-09-15] MEDS ORDERED: PANTOPRAZOLE 40 MG/VIAL ONE (22:18)
[2020-09-15] MEDS ORDERED: LACTULOSE 20 GM/30 ML UDCUP PO PRN (22:45)
[2020-09-15] MEDS ORDERED: DIPHENHYDRAMINE HCL 25 MG CAPSULE PO PRN (22:45)
[2020-09-15] MEDS ORDERED: DiphenhydrAMINE HCL 50 MG/ML VIAL IV PRN (22:45)
[2020-09-15] MEDS ORDERED: MAG/ALUM/SIMETH 30 ML UDCUP PO PRN (22:45)
[2020-09-15] MEDS ORDERED: GUAIFENESIN-DM 200/20 MG 10 ML PO PRN (22:45)
[2020-09-15] MEDS ORDERED: NITROGLYCERIN 0.4 MG SL TAB SL PRN (22:45)
[2020-09-15] MEDS ORDERED: ACETAMINOPHEN 325 MG TAB PO PRN ×2 (22:45)
[2020-09-15] MEDS ORDERED: ONDANSETRON 4MG INJ IV PRN (22:45)
[2020-09-15] MEDS ORDERED: METOPROLOL TARTRATE 25 MG TAB ONE (23:36)
[2020-09-15] MEDS ORDERED: ATORVASTATIN 40 MG TABLET ONE (23:36)
[2020-09-16] VITALS (7 sets, daily range): BP systolic 100–141; BP diastolic 50–71
[2020-09-16] MEDS ORDERED: CLONAZEPAM 2 MG TABLET PO ONE (01:45)
[2020-09-16] MEDS: PANTOPRAZOLE 40 MG/VIAL IVP SCH ×3 (01:45→21:38)
[2020-09-16 01:56] LABS: BASOPHILS % (AUTO) 0.3 % (0.0-5.0); EOSINOPHILS % (AUTO) 0.1 % (0.0-8.0); HEMATOCRIT 35.9 % (36-48); LYMPHOCYTES % (AUTO) 14.3 % (21.0-51.0); MEAN CORPUSCULAR HEMOGLOBIN 30.8 pg (27.0-33.0); MEAN CORPUSCULAR HGB CONC 32.6 g/dL (32.0-36.0); MEAN CORPUSCULAR VOLUME 94.5 fL (79-99); MONOCYTES % (AUTO) 6.9 % (3.0-13.0); NEUTROPHILS % (AUTO) 76.2 % (40.0-77.0); PLATELET COUNT (AUTO) 211 K/uL (130-400); RED CELL DISTRIBUTION WIDTH 16.5 % (11.0-15.5); WHITE BLOOD COUNT (AUTO) 14.1 K/uL (4.8-10.8)
[2020-09-16] MEDS ORDERED: CLONAZEPAM 1MG TAB ONE (02:54)
[2020-09-16] MEDS: ALBUTEROL 0.083% 2.5 MG/3 ML INH IH SCH ×4 (06:00→18:00)
[2020-09-16] MEDS: METOPROLOL TARTRATE 50 MG TAB PO SCH ×2 (08:52→21:39)
[2020-09-16] MEDS: FUROSEMIDE 40 MG TABLET PO SCH ×2 (08:52→21:38)
[2020-09-16] MEDS: CA 600MG+VIT D 400 UNIT TAB 1 TAB TABLET PO SCH (08:52)
[2020-09-16] MEDS ORDERED: BUDESONIDE 9 MG PO SCH (09:00)
[2020-09-16] MEDS ORDERED: FUROSEMIDE 40MG VIAL IVP SCH (09:00)
[2020-09-16] MEDS ORDERED: ARFORMOTEROL TARTRATE 15 MCG IH SCH (09:00)
[2020-09-16 10:52] LABS: CREATININE 1.4 mg/dL (0.5-1.5); POTASSIUM 4.4 mmol/L (3.5-5.1)
[2020-09-16] MEDS ORDERED: ATORVASTATIN 40 MG TABLET PO SCH (21:00)
[2020-09-17 01:28] VITALS: BP 170/57
[2020-09-17 05:48] VITALS: BP 116/54
[2020-09-17 05:48] LABS: BASOPHILS % (AUTO) 0.1 % (0.0-5.0); EOSINOPHILS % (AUTO) 0.6 % (0.0-8.0); HEMATOCRIT 30.9 % (36-48); LYMPHOCYTES % (AUTO) 19.1 % (21.0-51.0); MEAN CORPUSCULAR HEMOGLOBIN 30.3 pg (27.0-33.0); MEAN CORPUSCULAR VOLUME 91.7 fL (79-99); MONOCYTES % (AUTO) 5.5 % (3.0-13.0); NEUTROPHILS % (AUTO) 72.6 % (40.0-77.0); PLATELET COUNT (AUTO) 158 K/uL (130-400); RED BLOOD CELL COUNT(AUTO) 3.37 MIL/uL (4.00-5.50); RED CELL DISTRIBUTION WIDTH 16.3 % (11.0-15.5); WHITE BLOOD COUNT (AUTO) 7.8 K/uL (4.8-10.8)
[2020-09-17 05:53] LABS: CREATININE 1.3 mg/dL (0.5-1.5); POTASSIUM 3.4 mmol/L (3.5-5.1)
[2020-09-17] MEDS: ALBUTEROL 0.083% 2.5 MG/3 ML INH IH SCH ×2 (06:00)
[2020-09-17 06:06] LABS: B-TYPE NATRIURETIC PEPTIDE 1300 pg/mL (0-100)
[2020-09-17 08:00] VITALS: BP 100/51
[2020-09-17] MEDS: CA 600MG+VIT D 400 UNIT TAB 1 TAB TABLET PO SCH (09:08)
[2020-09-17] MEDS: METOPROLOL TARTRATE 50 MG TAB PO SCH (09:09)
[2020-09-17] MEDS: FUROSEMIDE 40 MG TABLET PO SCH (09:09)
[2020-09-17] MEDS: PANTOPRAZOLE 40 MG/VIAL IVP SCH (09:09)
[2020-09-17] MEDS ORDERED: KCL 20 MEQ ERTAB PO ONE (11:00)
[2020-09-17 12:00] VITALS: BP 111/64
== END 2020-09-17 13:46 | disposition home or self-care (01) ==
LOC: EDH 20:00 → EDHIP 22:32 → 4AH 09-16 01:10 → 4DH 09-17 09:42
PROVIDERS: ADMIT Family Medicine; ATTEND Family Medicine
DX: K92.1 Melena (principal); Z20.822 Contact with and (suspected) exposure to COVID-19; D64.9 Anemia, unspecified; J44.9 Chronic obstructive pulmonary disease, unspecified; I11.0 Hypertensive heart disease with heart failure; I50.33 Acute on chronic diastolic (congestive) heart failure; I48.91 Unspecified atrial fibrillation; J96.10 Chronic respiratory failure, unspecified whether with hypoxia or hypercapnia; I25.10 Atherosclerotic heart disease of native coronary artery without angina pectoris; E78.00 Pure hypercholesterolemia, unspecified; Z87.891 Personal history of nicotine dependence; Z95.1 Presence of aortocoronary bypass graft; Z95.0 Presence of cardiac pacemaker; Z99.81 Dependence on supplemental oxygen; Z79.82 Long term (current) use of aspirin; Z79.899 Other long term (current) drug therapy; Z91.048 Other nonmedicinal substance allergy status; Z91.041 Radiographic dye allergy status
CPT/HCPCS: 36415 ×3; 71045 ×2; 74176; 80048 ×2; 80053; 81001; 82270; 82550; 83605 ×2; 83735; 83880 ×2; 84484; 85025 ×3; 85610; 85730; 86850; 86900; 86901; 87426; 93005; 96374; 96376 ×2; 97039; 97161; 99285; C9113 ×4; G0378 ×38; G8978; G8979; G8980; G8981; G8982; G8983; J1940; U0003